=== PATIENT | male | born 1945 | race Caucasian/White ===

== ENCOUNTER 2017-06-09 16:04 | Emergency (ER) | payer OTHER ==
[2017-06-09 16:59] LABS: BASOPHILS 0.3 % (0-2); EOSINOPHILS 4.3 % (0-7); HEMATOCRIT 34.6 % (42.0-54.0); HEMOGLOBIN 11.4 g/dL (13.5-17.5); IMMATURE GRANULOCYTES 0.3 % (0-5); LYMPHOCYTES 35.1 % (15-50); MCH 26.9 pg (26.0-34.0); MCHC 32.9 g/dL (31.0-37.0); MCV 81.6 fL (80.0-100.0); MEAN PLATELET VOLUME 9.8 fL (7.4-10.4); MONOCYTES 6.8 % (2-11); NEUTROPHILS 53.2 % (40-80); PLATELET COUNT 178 10x3/uL (130-400); RBC 4.24 10x6/uL (4.20-6.10); RDW 14.2 % (11.5-14.5); WBC 6.8 10x3/uL (4.8-10.8)
[2017-06-09 17:12] LABS: APTT 25.4 SECONDS (22.8-39.4); INR 0.97 (0.85-1.17); PROTIME 12.5 SECONDS (11.6-15.0)
[2017-06-09 17:20] LABS: APPEARANCE CLEAR (CLEAR); COLOR YELLOW (YELLOW); GLUCOSE 100 mg/dL (NEGATIVE); NITRITE NEGATIVE (NEGATIVE); PROTEIN TRACE mg/dL (NEGATIVE); SPECIFIC GRAVITY 1.015 (1.005-1.020)
[2017-06-09 17:21] LABS: BILIRUBIN NEGATIVE (NEGATIVE); KETONE NEGATIVE (NEGATIVE); UROBILINOGEN NORMAL (NORMAL)
[2017-06-09 17:23] LABS: BILIRUBIN - TOTAL 0.3 mg/dL (0.2-1.3); CALCIUM 8.6 mg/dL (8.5-10.1); CARBON DIOXIDE 29.4 mmol/L (21.0-32.0); CREATININE - SERUM 1.4 mg/dL (0.6-1.3); POTASSIUM - SERUM 4.4 mmol/L (3.5-5.1); PROTEIN - SERUM 6.3 g/dL (6.4-8.2)
[2017-06-09 17:30] LABS: MAGNESIUM - SERUM 1.6 mg/dL (1.8-2.4); TROPONIN-I 0.019 ng/mL (0.000-0.060)
[2017-06-09 17:40] LABS: UDS - AMPHET NEGATIVE QUAL (NEGATIVE); UDS - BARB NEGATIVE QUAL (NEGATIVE); UDS - BENZO NEGATIVE QUAL (NEGATIVE); UDS - COCAINE NEGATIVE QUAL (NEGATIVE); UDS - OPIATE NEGATIVE QUAL (NEGATIVE); UDS - PCP NEGATIVE QUAL (NEGATIVE); UDS - THC NEGATIVE QUAL (NEGATIVE)
[2017-06-09 17:54] LABS: CKMB 1.9 U/L (0.0-3.6)
== END 2017-06-09 20:50 | disposition home or self-care (01) ==
LOC: D.ER 16:04
PROVIDERS: Nurse Practitioner Family
DX: S80.02XA Contusion of left knee, initial encounter (principal); W01.0XXA Fall on same level from slipping, tripping and stumbling without subsequent striking against object, initial encounter; Y93.89 Activity, other specified; Y92.019 Unspecified place in single-family (private) house as the place of occurrence of the external cause; R53.1 Weakness; E11.9 Type 2 diabetes mellitus without complications; Z86.73 Personal history of transient ischemic attack (TIA), and cerebral infarction without residual deficits; I10 Essential (primary) hypertension; Z79.4 Long term (current) use of insulin

== ENCOUNTER 2017-06-20 18:23 | Emergency (ER) | payer OTHER ==
[2017-06-20 20:12] LABS: BASOPHILS 0.4 % (0-2); EOSINOPHILS 1.6 % (0-7); HEMATOCRIT 39.3 % (42.0-54.0); HEMOGLOBIN 13.3 g/dL (13.5-17.5); IMMATURE GRANULOCYTES 0.2 % (0-5); LYMPHOCYTES 32.8 % (15-50); MCH 27.4 pg (26.0-34.0); MCHC 33.8 g/dL (31.0-37.0); MCV 80.9 fL (80.0-100.0); MEAN PLATELET VOLUME 10.2 fL (7.4-10.4); MONOCYTES 5.9 % (2-11); NEUTROPHILS 59.1 % (40-80); RBC 4.86 10x6/uL (4.20-6.10); RDW 13.8 % (11.5-14.5); WBC 9.3 10x3/uL (4.8-10.8)
[2017-06-20 20:27] LABS: ALBUMIN 3.2 g/dL (3.4-5.0); ANION GAP 12.1 mmol/L (8-16); BILIRUBIN - TOTAL 0.32 mg/dL (0.2-1.3); CALCIUM 9.1 mg/dL (8.5-10.1); CARBON DIOXIDE 27.9 mmol/L (21.0-32.0); CREATININE - SERUM 1.2 mg/dL (0.6-1.3); PROTEIN - SERUM 6.9 g/dL (6.4-8.2)
[2017-06-20 20:46] LABS: PLATELET COUNT 243 10x3/uL (130-400)
[2017-06-20 20:53] LABS: APPEARANCE CLEAR (CLEAR); BILIRUBIN NEGATIVE (NEGATIVE); COLOR YELLOW (YELLOW); GLUCOSE 50 mg/dL (NEGATIVE); KETONE NEGATIVE (NEGATIVE); NITRITE NEGATIVE (NEGATIVE); PROTEIN 1+ mg/dL (NEGATIVE); SPECIFIC GRAVITY 1.015 (1.005-1.020); UROBILINOGEN NORMAL (NORMAL)
[2017-06-20 20:54] LABS: BACTERIA FEW /hpf (NONE SEEN); RED CELLS - URINE 0-5 /hpf (0-5); WHITE CELLS - URINE 25-50 /hpf (0-5)
== END 2017-06-20 21:51 | disposition home or self-care (01) ==
LOC: D.ER 18:23
PROVIDERS: Emergency Medicine
DX: N39.0 Urinary tract infection, site not specified (principal); R10.9 Unspecified abdominal pain; Z86.73 Personal history of transient ischemic attack (TIA), and cerebral infarction without residual deficits; E11.9 Type 2 diabetes mellitus without complications; I10 Essential (primary) hypertension

== ENCOUNTER 2017-06-25 19:46 | Inpatient (IN) | payer MEDICARE, OTHER ==
[~2017-06-25] VITALS: Ht 172.7 cm; Wt 107.3 kg
[2017-06-25 20:56] LABS: APPEARANCE HAZY (CLEAR); BILIRUBIN NEGATIVE (NEGATIVE); COLOR DK YELLOW (YELLOW); GLUCOSE NEGATIVE (NEGATIVE); KETONE NEGATIVE (NEGATIVE); NITRITE NEGATIVE (NEGATIVE); PROTEIN 3+ mg/dL (NEGATIVE); UROBILINOGEN NORMAL (NORMAL)
[2017-06-25 21:02] LABS: AMORPHOUS SEDIMENT >1+ /lpf (NONE SEEN); BACTERIA MANY /hpf (NONE SEEN); EPITHELIAL CELLS 0-5 /hpf (0-5); GRANULAR CAST OCC /lpf (NONE SEEN); HYALINE CAST OCC /lpf (NONE SEEN); MUCUS >1+ /lpf (NONE SEEN); RED CELLS - URINE 25-50 /hpf (0-5); WHITE CELLS - URINE >50 /hpf (0-5)
[2017-06-25 21:07] LABS: BASOPHILS 0.3 % (0-2); EOSINOPHILS 3.5 % (0-7); HEMATOCRIT 37.8 % (42.0-54.0); HEMOGLOBIN 12.5 g/dL (13.5-17.5); IMMATURE GRANULOCYTES 0.2 % (0-5); LYMPHOCYTES 19.8 % (15-50); MCH 27.2 pg (26.0-34.0); MCHC 33.1 g/dL (31.0-37.0); MCV 82.4 fL (80.0-100.0); MEAN PLATELET VOLUME 10.5 fL (7.4-10.4); MONOCYTES 12.3 % (2-11); NEUTROPHILS 63.9 % (40-80); PLATELET COUNT 169 10x3/uL (130-400); RBC 4.59 10x6/uL (4.20-6.10); UDS - AMPHET NEGATIVE QUAL (NEGATIVE); UDS - BARB NEGATIVE QUAL (NEGATIVE); UDS - BENZO NEGATIVE QUAL (NEGATIVE); UDS - COCAINE NEGATIVE QUAL (NEGATIVE); UDS - OPIATE NEGATIVE QUAL (NEGATIVE); UDS - PCP NEGATIVE QUAL (NEGATIVE); UDS - THC NEGATIVE QUAL (NEGATIVE)
[2017-06-25 21:11] LABS: APTT 26.7 SECONDS (22.8-39.4); INR 1.08 (0.85-1.17); PROTIME 13.6 SECONDS (11.6-15.0)
[2017-06-25 21:18] LABS: ALBUMIN 2.8 g/dL (3.4-5.0); ALKALINE PHOSPHATASE 93 U/L (46-116); ALT (SGPT) 17 U/L (10-68); BILIRUBIN - TOTAL 0.23 mg/dL (0.2-1.3); CALC OSMOLALITY 280 mosm/kg (275-300); CALCIUM 8.4 mg/dL (8.5-10.1); CARBON DIOXIDE 24.9 mmol/L (21.0-32.0); CHLORIDE - SERUM 102 mmol/L (98-107); CREATININE - SERUM 1.6 mg/dL (0.6-1.3); POTASSIUM - SERUM 4.2 mmol/L (3.5-5.1); PROTEIN - SERUM 6.5 g/dL (6.4-8.2); SODIUM 137 mmol/L (136-145); UREA NITROGEN 29 mg/dL (7-18); eGFR NON AFRICAN AMERICAN 45 mL/min (90-120)
[2017-06-25 21:22] LABS: GLUCOSE 120 mg/dL (74-106)
[2017-06-25 21:27] LABS: CREATINE KINASE 81 UL (21-232); MAGNESIUM - SERUM 1.5 mg/dL (1.8-2.4); PRO BNP 524 pg/mL (0-125)
[2017-06-25 21:29] LABS: TROPONIN-I < 0.017 ng/mL (0.000-0.060)
[2017-06-26] MEDS ORDERED: GLUCOPHAGE1000 MG PO (01:21)
[2017-06-26] MEDS ORDERED: PRESERVISION AR1 CAP PO (01:22)
[2017-06-26] MEDS ORDERED: B-12 DOTS500 MCG PO (01:22)
[2017-06-26] MEDS ORDERED: FUROSEMIDE20 MG PO (01:23)
[2017-06-26] MEDS ORDERED: EFFEXOR75 MG PO (01:23)
[2017-06-26] MEDS ORDERED: METOPROLOL TART50 MG PO (01:24)
[2017-06-26] MEDS ORDERED: CLINORIL150 MG PO (01:24)
[2017-06-26] MEDS ORDERED: PRINIVIL20 MG PO (01:25)
[2017-06-26] MEDS ORDERED: BUPROPION HCL100 MG PO (01:25)
[2017-06-26] MEDS ORDERED: PROSCAR5 MG PO (01:25)
[2017-06-26] MEDS ORDERED: K-TAB10 MEQ PO (01:26)
[2017-06-26] MEDS ORDERED: LIPITOR40 MG PO (01:26)
[2017-06-26] MEDS ORDERED: ACETAMINOPHEN500 M1 PO (01:27)
[2017-06-26] MEDS ORDERED: VITAMIN D31000 UNIT PO (01:28)
[2017-06-26] MEDS ORDERED: ISOSORBIDE MONO30 M1 PO (01:28)
[2017-06-26] MEDS ORDERED: FLOMAX0.4 MG PO (01:29)
[2017-06-26] MEDS ORDERED: BAYER CHEWABLE81 MG PO (01:30)
[2017-06-26] MEDS ORDERED: REFRESH TEARS15 ML EACH EYE (01:30)
[2017-06-26 02:42] VITALS: BP 177/74; BMI 37.7
[2017-06-26 05:06] LABS: BASOPHILS 0.1 % (0-2); EOSINOPHILS 0.5 % (0-7); HEMATOCRIT 36.2 % (42.0-54.0); IMMATURE GRANULOCYTES 0.2 % (0-5); LYMPHOCYTES 12.5 % (15-50); MCH 26.9 pg (26.0-34.0); MCHC 33.1 g/dL (31.0-37.0); MCV 81.2 fL (80.0-100.0); MEAN PLATELET VOLUME 10.4 fL (7.4-10.4); MONOCYTES 10.4 % (2-11); NEUTROPHILS 76.3 % (40-80); PLATELET COUNT 170 10x3/uL (130-400); RBC 4.46 10x6/uL (4.20-6.10); WBC 8.5 10x3/uL (4.8-10.8)
[2017-06-26 05:20] LABS: ANION GAP 13.3 mmol/L (8-16); CALCIUM 8.3 mg/dL (8.5-10.1); CARBON DIOXIDE 25.7 mmol/L (21.0-32.0); CREATININE - SERUM 1.4 mg/dL (0.6-1.3); MAGNESIUM - SERUM 1.8 mg/dL (1.8-2.4)
[2017-06-26 08:32] VITALS: BP 139/49
[2017-06-26 11:46] VITALS: BP 168/75
[2017-06-26 14:56] VITALS: Ht 172.7 cm; Wt 107.3 kg
[2017-06-26 15:26] VITALS: BP 168/75
[2017-06-26 20:43] VITALS: BP 90/70
[2017-06-27] VITALS (7 sets, daily range): BP systolic 95–165; BP diastolic 61–87
[2017-06-27 06:27] LABS: ANION GAP 12.3 mmol/L (8-16); CALCIUM 8.1 mg/dL (8.5-10.1); CARBON DIOXIDE 25.7 mmol/L (21.0-32.0); CREATININE - SERUM 1.4 mg/dL (0.6-1.3)
[2017-06-27 07:04] LABS: HEMATOCRIT 36.9 % (42.0-54.0); HEMOGLOBIN 12.2 g/dL (13.5-17.5); LYMPHOCYTES 26.4 % (15-50); MCH 26.8 pg (26.0-34.0); MCHC 33.1 g/dL (31.0-37.0); MCV 80.9 fL (80.0-100.0); MEAN PLATELET VOLUME 10.5 fL (7.4-10.4); NEUTROPHILS 62.2 % (40-80); PLATELET COUNT 166 10x3/uL (130-400); RBC 4.56 10x6/uL (4.20-6.10); RDW 13.6 % (11.5-14.5); WBC 7.3 10x3/uL (4.8-10.8)
[2017-06-28 04:00] VITALS: BP 165/72
[2017-06-28 06:03] LABS: BASOPHILS 0.2 % (0-2); EOSINOPHILS 0.8 % (0-7); HEMOGLOBIN 11.5 g/dL (13.5-17.5); IMMATURE GRANULOCYTES 0.2 % (0-5); LYMPHOCYTES 26.5 % (15-50); MCH 26.7 pg (26.0-34.0); MCHC 32.9 g/dL (31.0-37.0); MCV 81.4 fL (80.0-100.0); MEAN PLATELET VOLUME 10.6 fL (7.4-10.4); MONOCYTES 9.4 % (2-11); NEUTROPHILS 62.9 % (40-80); PLATELET COUNT 190 10x3/uL (130-400); RDW 14.1 % (11.5-14.5); WBC 6.6 10x3/uL (4.8-10.8)
[2017-06-28 06:36] LABS: ANION GAP 15.3 mmol/L (8-16); CALCIUM 8.2 mg/dL (8.5-10.1); CARBON DIOXIDE 23.2 mmol/L (21.0-32.0); CREATININE - SERUM 1.3 mg/dL (0.6-1.3); POTASSIUM - SERUM 3.5 mmol/L (3.5-5.1)
[2017-06-28 09:10] VITALS: BP 193/91
[2017-06-28 12:16] VITALS: BP 120/68
[2017-06-28 16:45] VITALS: BP 175/79
[2017-06-28 20:00] VITALS: BP 141/87
[2017-06-29 04:31] LABS: BASOPHILS 0.3 % (0-2); EOSINOPHILS 0.8 % (0-7); HEMATOCRIT 38.2 % (42.0-54.0); HEMOGLOBIN 12.6 g/dL (13.5-17.5); IMMATURE GRANULOCYTES 0.2 % (0-5); MCH 26.9 pg (26.0-34.0); MCV 81.6 fL (80.0-100.0); MEAN PLATELET VOLUME 10.1 fL (7.4-10.4); MONOCYTES 8.4 % (2-11); NEUTROPHILS 57.3 % (40-80); PLATELET COUNT 221 10x3/uL (130-400); RBC 4.68 10x6/uL (4.20-6.10); WBC 5.9 10x3/uL (4.8-10.8)
[2017-06-29 04:44] LABS: CALCIUM 8.8 mg/dL (8.5-10.1); CREATININE - SERUM 1.1 mg/dL (0.6-1.3)
[2017-06-29 06:12] VITALS: BP 194/102
[2017-06-29 08:38] VITALS: BP 160/95
[2017-06-29 12:30] VITALS: BP 146/90
[2017-06-29 20:00] VITALS: BP 138/84
[2017-06-30 04:00] VITALS: BP 184/84
[2017-06-30 04:09] LABS: BASOPHILS 0.4 % (0-2); EOSINOPHILS 1.3 % (0-7); HEMATOCRIT 37.6 % (42.0-54.0); HEMOGLOBIN 12.4 g/dL (13.5-17.5); IMMATURE GRANULOCYTES 0.2 % (0-5); LYMPHOCYTES 40.3 % (15-50); MCH 26.7 pg (26.0-34.0); MCV 80.9 fL (80.0-100.0); NEUTROPHILS 46.8 % (40-80); PLATELET COUNT 250 10x3/uL (130-400); RBC 4.65 10x6/uL (4.20-6.10); RDW 13.9 % (11.5-14.5); WBC 5.4 10x3/uL (4.8-10.8)
[2017-06-30 04:23] LABS: ANION GAP 11.9 mmol/L (8-16); CALCIUM 8.5 mg/dL (8.5-10.1); CREATININE - SERUM 1.2 mg/dL (0.6-1.3); POTASSIUM - SERUM 3.9 mmol/L (3.5-5.1)
[2017-06-30 08:48] VITALS: BP 153/97
[2017-06-30] MEDS ORDERED: LEVAQUIN500 MG PO (10:31)
[2017-06-30 11:46] VITALS: BP 128/65
[2017-07-01 18:07] LABS: AEROBE ID Final report (()); RESULT 1 Serratia odorifera (())
== END 2017-06-30 18:02 | disposition home or self-care (01) | DRG 872 ==
LOC: D.ER 19:46 → D.M2 06-26 00:36 → OBSVTIME 06-26 00:36 → D.M2 06-26 11:40
PROVIDERS: Emergency Medicine; Family Medicine; Nurse Practitioner Family
DX: A41.9 Sepsis, unspecified organism (principal); N39.0 Urinary tract infection, site not specified; R78.81 Bacteremia; J11.1 Influenza due to unidentified influenza virus with other respiratory manifestations; H35.30 Unspecified macular degeneration; H54.8 Legal blindness, as defined in USA; I10 Essential (primary) hypertension; I25.10 Atherosclerotic heart disease of native coronary artery without angina pectoris; E11.40 Type 2 diabetes mellitus with diabetic neuropathy, unspecified

== ENCOUNTER 2017-09-02 21:13 | Emergency (ER) | payer OTHER ==
[2017-06-26 14:56] VITALS: BMI 37.7
[~2017-09-02 21:13] MED LIST: ACETAMINOPHEN500 M1 PO; B-12 DOTS500 MCG PO; BAYER CHEWABLE81 MG PO; BUPROPION HCL100 MG PO; CLINORIL150 MG PO; EFFEXOR75 MG PO; FLOMAX0.4 MG PO; FUROSEMIDE20 MG PO; GLUCOPHAGE1000 MG PO; ISOSORBIDE MONO30 M1 PO; K-TAB10 MEQ PO; LEVAQUIN500 MG PO; LIPITOR40 MG PO; METOPROLOL TART50 MG PO; PRESERVISION AR1 CAP PO; PRINIVIL20 MG PO; PROSCAR5 MG PO; REFRESH TEARS15 ML EACH EYE; VITAMIN D31000 UNIT PO
[2017-09-02 21:58] LABS: BASOPHILS 0.4 % (0-2); HEMATOCRIT 36.4 % (42.0-54.0); IMMATURE GRANULOCYTES 0.2 % (0-5); LYMPHOCYTES 35.2 % (15-50); MCH 26.8 pg (26.0-34.0); MCV 81.4 fL (80.0-100.0); MEAN PLATELET VOLUME 10.7 fL (7.4-10.4); MONOCYTES 6.7 % (2-11); NEUTROPHILS 54.5 % (40-80); PLATELET COUNT 200 10x3/uL (130-400); RBC 4.47 10x6/uL (4.20-6.10); RDW 13.6 % (11.5-14.5); WBC 8.5 10x3/uL (4.8-10.8)
[2017-09-02 22:20] LABS: ALBUMIN 2.7 g/dL (3.4-5.0); ANION GAP 14.4 mmol/L (8-16); BILIRUBIN - TOTAL 0.23 mg/dL (0.2-1.3); CALCIUM 8.7 mg/dL (8.5-10.1); CARBON DIOXIDE 24.9 mmol/L (21.0-32.0); CREATININE - SERUM 1.4 mg/dL (0.6-1.3); POTASSIUM - SERUM 4.3 mmol/L (3.5-5.1); PROTEIN - SERUM 6.6 g/dL (6.4-8.2)
[2017-09-02 22:25] LABS: APPEARANCE CLEAR (CLEAR); BILIRUBIN NEGATIVE (NEGATIVE); COLOR YELLOW (YELLOW); GLUCOSE 1000 mg/dL (NEGATIVE); KETONE NEGATIVE (NEGATIVE); NITRITE NEGATIVE (NEGATIVE); PROTEIN TRACE mg/dL (NEGATIVE); UROBILINOGEN NORMAL (NORMAL)
[2017-09-02 22:27] LABS: BACTERIA FEW /hpf (NONE SEEN); RED CELLS - URINE 0-5 /hpf (0-5); WHITE CELLS - URINE 0-5 /hpf (0-5)
[2017-09-02 22:29] LABS: YEAST OCC /hpf (NONE SEEN)
[2017-09-02 22:49] LABS: KETONE - SERUM NEGATIVE (NEGATIVE)
[2017-09-02 22:53] LABS: CREATINE KINASE 67 UL (21-232); LIPASE 105 U/L (73-393); TROPONIN-I < 0.017 ng/mL (0.000-0.060)
== END 2017-09-03 00:04 | disposition home or self-care (01) ==
LOC: D.ER 21:13
PROVIDERS: Family Medicine
DX: R60.0 Localized edema (principal); E11.65 Type 2 diabetes mellitus with hyperglycemia; G62.9 Polyneuropathy, unspecified; N28.9 Disorder of kidney and ureter, unspecified

== ENCOUNTER 2018-01-19 21:32 | Emergency (ER) | payer OTHER ==
[~2018-01-19] VITALS: Ht 172.7 cm; Wt 120.5 kg
[2018-01-19 21:51] VITALS: Ht 172.7 cm; Wt 120.5 kg
[2018-01-19 22:23] LABS: BASOPHILS 0.2 % (0-2); EOSINOPHILS 3.4 % (0-7); HEMATOCRIT 35.4 % (42.0-54.0); HEMOGLOBIN 11.7 g/dL (13.5-17.5); IMMATURE GRANULOCYTES 0.2 % (0-5); LYMPHOCYTES 32.3 % (15-50); MCH 27.5 pg (26.0-34.0); MCHC 33.1 g/dL (31.0-37.0); MCV 83.1 fL (80.0-100.0); MEAN PLATELET VOLUME 10.5 fL (7.4-10.4); MONOCYTES 9.5 % (2-11); NEUTROPHILS 54.4 % (40-80); RBC 4.26 10x6/uL (4.20-6.10); RDW 14.4 % (11.5-14.5); WBC 6.4 10x3/uL (4.8-10.8)
[2018-01-19 22:38] LABS: KETONE - SERUM NEGATIVE (NEGATIVE)
[2018-01-19 22:43] LABS: PLATELET COUNT 158 10x3/uL (130-400)
[2018-01-19 22:46] LABS: ALBUMIN 2.8 g/dL (3.4-5.0); ALKALINE PHOSPHATASE 96 U/L (46-116); ALT (SGPT) 18 U/L (10-68); BILIRUBIN - TOTAL 0.19 mg/dL (0.2-1.3); CALC OSMOLALITY 294 mosm/kg (275-300); CALCIUM 8.5 mg/dL (8.5-10.1); CARBON DIOXIDE 28.9 mmol/L (21.0-32.0); CHLORIDE - SERUM 104 mmol/L (98-107); CREATININE - SERUM 1.6 mg/dL (0.6-1.3); POTASSIUM - SERUM 4.8 mmol/L (3.5-5.1); PROTEIN - SERUM 6.3 g/dL (6.4-8.2); SODIUM 139 mmol/L (136-145); UREA NITROGEN 22 mg/dL (7-18); eGFR NON AFRICAN AMERICAN 45 mL/min (90-120)
[2018-01-19 22:47] LABS: GLUCOSE 359 mg/dL (74-106)
[2018-01-19 22:53] LABS: APPEARANCE CLEAR (CLEAR); BILIRUBIN NEGATIVE (NEGATIVE); COLOR YELLOW (YELLOW); GLUCOSE 1000 mg/dL (NEGATIVE); KETONE SMALL mg/dL (NEGATIVE); NITRITE NEGATIVE (NEGATIVE); PROTEIN 1+ mg/dL (NEGATIVE); UROBILINOGEN NORMAL (NORMAL)
[2018-01-19 23:52] LABS: CKMB 1.9 U/L (0.0-3.6); CREATINE KINASE 105 UL (21-232)
[2018-01-19 23:53] LABS: TROPONIN-I < 0.017 ng/mL (0.000-0.060)
[2018-01-20 02:27] VITALS: BP 135/70
== END 2018-01-20 01:25 | disposition home or self-care (01) ==
LOC: D.ER 21:32
PROVIDERS: Emergency Medicine
DX: E11.65 Type 2 diabetes mellitus with hyperglycemia (principal); M79.605 Pain in left leg; M79.604 Pain in right leg; G62.9 Polyneuropathy, unspecified; H91.3 Deaf nonspeaking, not elsewhere classified; I10 Essential (primary) hypertension; N42.9 Disorder of prostate, unspecified

== ENCOUNTER 2018-01-22 10:54 | Emergency (ER) | payer OTHER ==
[~2018-01-22] VITALS: Ht 172.7 cm; Wt 100.0 kg
[2018-01-22 11:05] VITALS: Ht 172.7 cm; Wt 100.0 kg
[2018-01-22 11:28] LABS: BASOPHILS 0.3 % (0-2); EOSINOPHILS 2.6 % (0-7); HEMATOCRIT 35.4 % (42.0-54.0); HEMOGLOBIN 11.6 g/dL (13.5-17.5); IMMATURE GRANULOCYTES 0.2 % (0-5); LYMPHOCYTES 27.4 % (15-50); MCH 27.2 pg (26.0-34.0); MCHC 32.8 g/dL (31.0-37.0); MCV 83.1 fL (80.0-100.0); MEAN PLATELET VOLUME 10.5 fL (7.4-10.4); MONOCYTES 8.9 % (2-11); NEUTROPHILS 60.6 % (40-80); PLATELET COUNT 175 10x3/uL (130-400); RBC 4.26 10x6/uL (4.20-6.10); RDW 14.4 % (11.5-14.5); WBC 6.1 10x3/uL (4.8-10.8)
[2018-01-22 11:36] LABS: APPEARANCE CLEAR (CLEAR); COLOR YELLOW (YELLOW); SPECIFIC GRAVITY 1.015 (1.005-1.020)
[2018-01-22 11:37] LABS: BILIRUBIN NEGATIVE (NEGATIVE); GLUCOSE NEGATIVE (NEGATIVE); KETONE NEGATIVE (NEGATIVE); NITRITE NEGATIVE (NEGATIVE); PROTEIN TRACE mg/dL (NEGATIVE); UROBILINOGEN NORMAL (NORMAL)
[2018-01-22 11:51] LABS: ALBUMIN 2.7 g/dL (3.4-5.0); ANION GAP 12.4 mmol/L (8-16); BILIRUBIN - TOTAL 0.27 mg/dL (0.2-1.3); CALCIUM 8.4 mg/dL (8.5-10.1); CARBON DIOXIDE 26.5 mmol/L (21.0-32.0); CREATININE - SERUM 1.3 mg/dL (0.6-1.3); POTASSIUM - SERUM 3.9 mmol/L (3.5-5.1); PROTEIN - SERUM 6.3 g/dL (6.4-8.2)
[2018-01-22 15:59] VITALS: BP 136/88
== END 2018-01-22 16:03 | disposition home or self-care (01) ==
LOC: D.ER 10:54
PROVIDERS: Family Medicine
DX: M54.41 Lumbago with sciatica, right side (principal); E11.649 Type 2 diabetes mellitus with hypoglycemia without coma; R53.1 Weakness; H91.3 Deaf nonspeaking, not elsewhere classified; I10 Essential (primary) hypertension; N42.9 Disorder of prostate, unspecified

== ENCOUNTER 2019-08-14 11:04 | Observation (INO) | payer OTHER ==
[~2019-08-14] VITALS: Ht 172.7 cm; Wt 120.2 kg
--- NOTE | ~2019-08-14 | HEMODYNAMI ---
PATIENT:COLBY PARHAM MEDICAL RECORD: [id number] : 41 [facility] [id number] ADMISSION DATE: 08/14/19 Generatedon:08/15/201911:35 Patient name: COLBY PARHAM Patient #: [id number] SSN: [id number] : 1945 Date of study: 08/15/2019 Page: Of Hemodynamic Procedure Report Patient Data Patient Demographics Procedure consent was obtained First Name: COLBY Gender: Male Last Name: PRASAD : 1945 Middle Initial: N Age: 73 year(s) Patient #: [id number] Race: SSN: [id number] Additional ID: [id number] Contact details [address]: [address] [place] [address] State: [place] City: [place] Zip code: [address] Past Medical History Allergies Allergen Reaction Date Comments Reported Other allergy 08/15/2019 N Admission Admission Data Admission Date: 08/14/2019 Admission Time: 12:31 Arrival Date: 08/15/2019 Arrival Time: 0:00 Admit Source: Other [facility] #: [id number] Room #: D.2116 Height (in.): 68.11 BSA: 2.32 (m2) Height (cm.): 173 BMI: 40.76 (kg/m2) Weight (lbs.): 268.97 Weight (kg.): 122 Lab Results Lab Result Date: 08/15/2019 Lab Result Time: 0:00 Biochemistry Name Units Result Min Max BUN mg/dl 22 --(----)-* 7 18 CK-MB ng/ml 1 --(-*--)-- 0 3.6 Creatinine mg/dl 1.7 --(----)-* 0.6 1.3 eGFR ml/min 42 *-(----)-- 90 120 NONAFRICAN Troponin l ng/ml 0.069 --(----)*- 0 0.06 CBC Name Units Result Min Max Hematocrit % 36.8 *-(----)-- 42 54 Hemoglobin g/dl 12 *-(----)-- 13.5 17.5 Procedure Procedure Types Cath Procedure Diagnostic Procedure [facility] w/Coronaries w/Grafts Sedation Charges Moderate Sedation up to 45 minutes PCI Procedure Coronary Stent Coronary Stent Initial Hemochron ACT Test Procedure Description Procedure Date Procedure Date: 08/15/2019 Procedure Start Time: 10:58 Procedure Staff Name Function Sang Berg MD Performing Physician Edie Hale RT Monitor Salina Adams RT Scrub Cristiano Miller RN Nurse Procedure Data Cath Procedure Fluoroscopy Diagnostic fluoroscopy Total fluoroscopy Time: 9.1 time: 9.1 min min Diagnostic fluoroscopy Total fluoroscopy dose: dose: 1677 mGy 1677 mGy Contrast Material Contrast Material Type Amount (ml) Isovue 370 133 Entry Location Entry Primary Successful Side Size Upsize Upsize Entry Closure Succes sful Closure Location (Fr) 1 (Fr) 2 (Fr) Remarks Device Remarks Femoral Right 5 Fr 6 Fr Exoseal artery Short Estimated blood loss: 10 ml Diagnostic catheters Device Type Used For End Catheter Placement MULTIPACK JL 4.0 5Fr Procedure catheter DIAGNOSTIC AR MOD 5Fr Procedure Catheter ([id number]) DIAGNOSTIC IM 5Fr Procedure catheter ([id number]) MULTIPACK Pigtail 5 Fr Procedure catheter Procedure Complications No complications Procedure Medications Medication Administration Route Dosage Oxygen etCO2 Nasal cannula 2 l/min Lidocaine 2% added to field 20 Heparin Flush Bag added to field 2 bags (1000units/500ml NS) Versed I.V. 1 mg Fentanyl I.V. 50 mcg Versed I.V. 1 mg Fentanyl I.V. 50 mcg Versed I.V. 1 mg Versed I.V. 1 mg Heparin Bolus I.V. 91287 units Fentanyl I.V. 100 mcg Plavix P.O. 600 mg Hemodynamics Rest BSA: 2.32 (m2) HGB: 12 (g/dl) O2 Consumption: Estimated: 263.22 (ml/min) O2 Cons umption indexed: Estimated:113.46 (ml/min/m) Heart Rate: 66 (bpm) Snapshots Pre Cath Intra NCS Post Cath Vital Signs Time Heart Resp SPO2 etCO2 NIBP (mmHg) Rhythm Pain Sedation Rate (ipm) (%) (mmHg) Status Level (bpm) 10:35:12 65 19 99 34.4 159/79(121) NSR 0 (11) 10(A) , No pain 10:39:45 65 17 97 0 154/86(124) NSR 0 (11) 10(A) , No pain 10:44:15 67 16 96 33.7 148/87(124) NSR 0 (11) 10(A) , No pain 10:48:45 66 17 97 0 153/80(129) NSR 0 (11) 10(A) , No pain 10:53:18 67 16 97 16.4 138/71(119) NSR 0 (11) 9(A) , No pain 10:57:42 67 19 98 0 142/82(111) NSR 0 (11) 9(A) , No pain 11:02:08 66 14 98 0 149/84(116) NSR 0 (11) 9(A) , No pain 11:06:38 69 18 95 0 145/84(115) NSR 0 (11) 9(A) , No pain 11:11:11 68 18 98 0 152/73(115) NSR 0 (11) 9(A) , No pain 11:15:43 67 17 99 0 148/76(111) NSR 0 (11) 10(A) , No pain 11:20:14 68 17 98 0 153/81(123) NSR 0 (11) 10(A) , No pain 11:24:46 68 11 94 17.2 142/79(109) NSR 0 (11) 10(A) , No pain 11:29:12 70 12 94 0 159/82(134) NSR 0 (11) 10(A) , No pain 11:33:45 72 15 97 31.4 166/84(132) NSR 0 (11) 10(A) , No pain Medications Time Medication Route Dose Verified Delivered Reason Note s Effectiveness by by 10:36:33 Oxygen etCO2 2 Sang Buffie used for Nasal l/min Otis Miller RN procedure cannula 10:36:41 Lidocaine 2% added 20ml Sang Sang for local to vial Otis Berg MD anesthetic field 10:36:47 Heparin Flush added 2 bags Sang Sang used for Bag to Otis Berg MD procedure (1000units/500ml field NS) 10:46:14 Versed I.V. 1 mg Sang Buffie for sedation Otis Miller RN 10:46:20 Fentanyl I.V. 50 mcg Sang Buffie for sedation Otis Miller RN 10:50:19 Versed I.V. 1 mg Sang Buffie for sedation Otis Miller RN 10:50:23 Fentanyl I.V. 50 mcg Sang Buffie for sedation Otis Miller RN 11:00:58 Versed I.V. 1 mg Sang Buffie for sedation Otis Miller RN 11:07:00 Versed I.V. 1 mg Sang Buffie for sedation Otis Miller RN 11:18:24 Heparin Bolus I.V. 11,000 Sang Buffie for veri fied units Otis Miller RN anticoagulation with dr berg 11:21:23 Fentanyl I.V. 100 Sang Buffie for sedation mcg Otis Miller RN 11:28:43 Plavix P.O. 600 mg Sang Buffie for Otis Miller RN antiplatelet therapy Procedure Log Time Note 9:48:41 Informed consent obtained and on chart 9:49:42 Arrival Date: 08/15/2019 12:00:00 AM 9:50:06 Patient Height : 68.11 inches 9:50:13 Patient Weight : 268.97 lbs 9:56:02 Lab Result : BUN 22 mg/dl 9:56:02 Lab Result : eGFR NONAFRICAN 42 ml/min 9:56:02 Lab Result : Hemoglobin 12 g/dl 9:56:02 Lab Result : Hematocrit 36.8 % 9:56:02 Lab Result : Creatinine 1.7 mg/dl 9:56:02 Lab Result : CK-MB 1 ng/ml 9:56:02 Lab Result : Troponin l 0.069 ng/ml 9:56:16 Admit Source: Other 9:56:22 Procedure Status Urgent Heart Cath (IP). 9:57:12 Time tracking: Regular hours (M-F 7:00 - 5:00) 9:57:21 Plan of Care:Hemodynamics will remain stable., Cardiac rhythm will remain stable., Comfort level will be maintained., Respiratory function will remain adequate., Patient/ family verbilizes understanding of procedure., Procedure tolerated without complication., Recovers from procedure without complications.. 9:58:05 H&P Date Dictated: 08/14/2019 Within 30 days and on chart.. 9:58:06 Pre-procedure instructions explained to patient. 9:58:07 Pre-op teaching completed and patient verbalized understanding. 9:58:08 Family unavailable. 9:58:10 Patient NPO since Midnight. 9:58:29 Patient allergic to Other allergyPCN 9:58:37 Lab results completed and on chart. 9:59:19 Stress Test: no; N/A ? 9:59:27 Alarms reviewed by R. N. 9:59:28 Sharps counted by scrub and verified by R.N. 10:05:39 Cristiano Miller RN sent for patient. Start room use. 10:19:16 Patient received from Med II to CCL 1 Alert and oriented. Tansferred to table in Supine position. 10:19:17 Warm blankets applied, and saleem hugger turned on for patient comfort. 10:19:18 Correct patient and procedure confirmed by team. 10:19:19 ECG and BP/O2 sat monitors applied to patient. 10:32:01 Is the patient allergic to Iodine/contrast media? No. 10:32:04 Was the patient premedicated? Yes 10:32:11 Is patient on blood thinner?No 10:32:15 Patient diabetic? Yes. 10:32:19 If diabetic: On Metformin? N/A 10:32:21 ----Pre-sedation anethsthesia assessment.---- 10:32:23 Previous problem with sedation/anesthesia? No ? 10:32:25 Snore? Yes 10:32:26 Sleep apnea? No 10:32:27 Deviated septum? No 10:33:03 Opens mouth fully? Yes 10:33:05 Sticks out tongue? Yes 10:33:08 Airway obstruction? No ? 10:33:11 Dentures? Yes IN TIGHT 10:33:16 Pre procedure: right dorsailis pedis pulse 1+ Palpable, but thready & weak; easily obliterated 10:33:19 Patient pain scale 0/10 ?. 10:33:30 IV patent on arrival in left antecubital with 0.9% NaCl at O. 10:33:38 Right groin area was prepped with chlora-prep and draped in sterile fashion 10:33:42 Vital chart was started 10:33:43 Full Disclosure recording started 10:33:46 Baseline sample Acquired. 10:33:52 Rhythm: sinus rhythm 10:34:01 Use device set Femoral Dx 10:34:03 ACIST Syringe (15069) opened to sterile field. 10:34:03 Bag Decanter (2002S) opened to sterile field. 10:34:04 Medline Cath Pack ([id number]) opened to sterile field. 10:34:05 ACIST Hand Control (89818) opened to sterile field. 10:34:05 ACIST Manifold (80972) opened to sterile field. 10:34:06 DIAGNOSTIC Multipack 5Fr catheter set ([id number]) opened to sterile field. 10:34:09 SHEATH 5FR Harrells (BWL890) opened to sterile field. 10:34:10 EMERALD Guide Wire (615-335) opened to sterile field. 10:36:33 Oxygen 2 l/min etCO2 Nasal cannula was administered by Cristiano Miller RN; used for procedure; Verbal order read back and verified. 10:36:41 Lidocaine 2% 20ml vial added to field was administered by Sang Berg MD; for local anesthetic; Verbal order read back and verified. 10:36:47 Heparin Flush Bag (1000units/500ml NS) 2 bags added to field was administered by Sang Begr MD; used for procedure; Verbal order read back and verified. 10:44:52 --------ALL STOP TIME OUT------ 10:44:53 Final Timeout: patient, procedure, and site verified with staff and physician. All members of the team are in agreement. 10:44:54 Right groin site verified by team. 10:44:58 Fire Safety Assessment: A--An alcohol-based skin anteseptic being used preoperatively., C--Open oxygen or nitrous oxide is being used., D--An ESU, laser, or fiber-optic light is being used. 10:45:00 Physical assessment completed. ASA score P 2 - A patient with mild systemic disease as per Sang Berg MD. 10:45:05 3b) 30-44 Moderately reduced kidney function. 10:45:09 Maximum allowable contrast dose (3.7 X eGFR X 0.75)117 ml. 10:45:13 Sedation plan: IV Moderate Sedation Medication:Versed, Fentanyl 10:46:14 Versed 1 mg I.V. was administered by Cristiano Miller RN; for sedation; Verbal order read back and verified. 10:46:20 Fentanyl 50 mcg I.V. was administered by Cristiano Miller RN; for sedation; Verbal order read back and verified. 10:50:19 Versed 1 mg I.V. was administered by Cristiano Miller RN; for sedation; Verbal order read back and verified. 10:50:23 Fentanyl 50 mcg I.V. was administered by Cristiano Miller RN; for sedation; Verbal order read back and verified. 10:58:32 Procedure started. 10:58:53 Local anesthetic to right femoral artery with Lidocaine 2% by Sang Berg MD.INITIAL ACCESS ONLY 11:00:30 A 5 Fr sheath was inserted into the Right Femoral artery 11:00:57 A MULTIPACK JL 4.0 5Fr catheter was advanced over the wire and used for Procedure. 11:00:58 Versed 1 mg I.V. was administered by Cristiano Miller RN; for sedation; Verbal order read back and verified. 11:01:32 LCA angiography performed. 11:01:35 Injector settings: Ml/sec: 3, Volume: 6, 11:02:54 Catheter exchanged over wire. 11:03:30 A DIAGNOSTIC AR MOD 5Fr Catheter ([id number]) was advanced over the wire and used for Procedure. 11:03:51 Injector settings: Ml/sec: 3, Volume: 6, 11:05:20 SVG to Diag angiography performed. 11:07:00 Versed 1 mg I.V. was administered by Cristiano Miller RN; for sedation; Verbal order read back and verified. 11:07:12 RCA angiography performed. 11:07:21 Catheter exchanged over wire. 11:07:24 A DIAGNOSTIC IM 5Fr catheter ([id number]) was advanced over the wire and used for Procedure. 11:10:40 MORRIS to LAD angiography performed. 11:10:57 Injector settings: Ml/sec: 3, Volume: 6, 11:11:00 Catheter exchanged over wire. 11:11:10 A MULTIPACK Pigtail 5 Fr catheter was advanced over the wire and used for Procedure. 11:11:31 Use device set OTIS PCI 11:13:28 Injector settings: Ml/sec: 10, Volume: 20, 11:13:30 Aortic Root visualized 11:13:51 Catheter exchanged over wire. 11:13:52 Proceeding to intervention. 11:14:03 INFLATOR Merit Teek (TL7260) opened to sterile field. 11:14:04 TUBING High Pressure Extension Tubing (Otis) (PE5927G) opened to sterile field. 11:14:05 BMW 300cm [place] 2 J wire ([id number]) opened to sterile field. 11:14:09 SHEATH 6FR Harrells (LBW402) opened to sterile field. 11:15:07 Sheath upsized to a 6 Fr Short. 11:18:24 Heparin Bolus 11,000 units I.V. was administered by Cristiano Miller RN; for anticoagulation; verified with dr berg Verbal order read back and verified. 11:18:50 GUIDE 6FR EBU 3.75 catheter ([id number]) opened to sterile field. 11:18:51 Pre PCI Site: [place] has 80% stenosis. 11:18:58 6 Fr EBU 3.75 guide catheter was inserted over the wire 11:19:02 BMW 300 wire advanced. 11:20:27 Wire advanced across lesion. 11:21:23 Fentanyl 100 mcg I.V. was administered by Cristiano Miller RN; for sedation; Verbal order read back and verified. 11:23:59 Place stent Inflation Number: 1 A ANT RX 3.0 x 15 stent ([id number]) was prepped and advanced across the Prox CX 80. The stent was deployed at 14 RAMÓN for 0:20 (min:sec) . 11:24:32 Stent catheter was removed intact over wire. 11:24:33 Wire removed. 11:24:33 Guide catheter removed. 11:25:17 EXOSEAL 6Fr (EX600) opened to sterile field. 11:25:29 Sheath removed intact; hemostasis achieved with Exoseal to the Right Femoral artery. 11::47 Fluoroscopy time 09.10 minutes. 11:25:54 Fluoroscopy dose: 1677 mGy 11:25:54 Flurop Dose total: 1677 11:26:01 Dose Area Product 64634 mGy/cm. 11:26:06 Contrast amount:Isovue 370 133ml. 11:27:00 Maximum allowable dose exceeded? No. 11:27:01 Sharps counted by scrub and verified by R.N. 11:27:06 Post-op/insertion site Right Femoral artery dressed using a 4 x 4 and Tegaderm. 11:27:08 Procedure ended.(Physican Out) 11:27:11 Post right femoral artery:stable, soft, clean and dry 11:27:14 Post Procedure Pulses reassessed and unchanged 11:27:18 Post procedure: right dorsailis pedis pulse 1+ Palpable, but thready & weak; easily obliterated. 11:27:21 Post-procedure physical assessment completed. ASA score P 2 - A patient with mild systemic disease as per Sang Berg MD. 11:27:24 Post procedure rhythm: unchanged. 11::27 Estimated blood loss: 10 ml 11::28 Post procedure instruction explained to patient.Patient verbalizes understanding. 11:27:29 Patient needs reinforcement of post procedure teaching. 11:28:43 Plavix 600 mg P.O. was administered by Cristiano Miller RN; for antiplatelet therapy; Verbal order read back and verified. 11:28:53 Procedure type changed to Cath procedure, Diagnostic procedure, LHC, LHC w/Coronaries w/Grafts, Sedation Charges, Moderate Sedation up to 45 minutes, PCI procedure, Coronary Stent, Coronary Stent Initial, Hemochron ACT Test 11::06 Procedure and supply charges have been captured, reviewed, submitted and are correct. 11:30:10 Procedure Complication : No complications 11:30:17 [facility] Findings: MVD- PCI performed (see procedure note) 11:30:18 Operative report dictated upon procedure completion. 11:30:18 See physician's report for complete and final results. 11:30:22 Report given to [facility]. 11:30:26 Patient transfered to [facility] with Bed. 11:32:11 ACT drawn and resulted at out of range high seconds. (normal therapeutic range 180-240 seconds). 11:33:51 Vital chart was stopped 11:33:58 ACC-PCI Only Patient was given prescriptions, or instructed by Sang Berg MD to start/continue the following medications upon discharge: Plavix 11:33:59 End room use (Document Last) 11:34:13 End room use (Document Last) 11:34:35 End room use (Document Last) Intervention Summary Intervention Notes Time ActionType Lesion and Equipment Used Action# Pressure Duration Attributes 11:23:[address] Place stent Prox CX ANT RX 3.0 x 1 14 00:20 15 stent ([id number]) Device Usage Item Name Manufacture Quantity Catalog Hospital Part [facility] Lot# / Number Charge Number Stock Stock Serial# Code ACIST Syringe Acist 1 53930 739157 549135 369931 20 (75961) Medical Systems Inc Bag Decanter Microtek 1 2001S 548348 43850 296435 5 () Medical Inc. Medline Cath Medline 1 [id number] 811033 74745 804439 5 Pack ([id number]) ACIST Hand Acist 1 66229 214078 163460 929580 5 Control Medical (25875) Systems Inc ACIST Manifold Acist 1 19825 633342 990702 716374 5 (24887) Medical Systems Inc DIAGNOSTIC Cardinal 1 GK3401 895382 85811 644431 30 Multipack 5Fr Health catheter set (IG7600) SHEATH 5FR Terumo 1 BAZ208 724314 910213 136938 5 Harrells (TMG455) EMERALD Guide Cardinal 1 502-455 767891 587325 432257 5 Wire (502-455) Health MULTIPACK JL Cardinal 1 829533 5 4.0 5Fr Health catheter DIAGNOSTIC AR Cardinal 1 826986P 955958 541005 650937 15 MOD 5Fr Health Catheter (913556O) DIAGNOSTIC IM Cardinal 1 [id number] 931318 981103 706949 5 5Fr catheter Health (926466L) MULTIPACK Cardinal 1 558722 5 Pigtail 5 Fr Health catheter INFLATOR Merit Merit 1 NU0075 739557 786135 504185 15 BasixCompak Medical (FC5222) TUBING High Merit 1 BE0119S 264723 34044 942057 10 Pressure Medical Extension Tubing (Berg) (PE0005S) BMW 300cm [place] 1 [id number] 912291 895777 617389 5 [place] 2 J Vascular wire (5760271P) SHEATH 6FR Terumo 1 YRN388 692441 714897 534411 40 Harrells (HMF856) GUIDE 6FR EBU Medtronic 1 [id number] 691571 73618 851277 1 3.75 catheter ([id number]) ANT RX 3.0 x Medtronic 1 [id number] 908533 9157297 691792 5 [id number] 15 stent ([id number]) EXOSEAL 6Fr Cardinal 1 EX600 948290 858982 591044 10 (EX600) Health Signature Audit [place] Stage Time Signature Unsigned Intra-Procedure 08/15/2019 Edie Hale 11:34:13 AM RT(R) Intra-Procedure 08/15/2019 Cristiano Miller RN 11:34:35 AM Intra-Procedure 08/15/2019 Sang Berg MD 11:34:57 AM [facility] [address] [place] [address]
[2019-08-14 11:31] LABS: BASOPHILS 0.3 % (0-2); EOSINOPHILS 2.9 % (0-7); HEMATOCRIT 36.8 % (42.0-54.0); IMMATURE GRANULOCYTES 0.3 % (0-5); LYMPHOCYTES 32.9 % (15-50); MCH 27.9 pg (26.0-34.0); MCHC 32.6 g/dL (31.0-37.0); MCV 85.6 fL (80.0-100.0); MEAN PLATELET VOLUME 10.3 fL (7.4-10.4); MONOCYTES 7.8 % (2-11); NEUTROPHILS 55.8 % (40-80); RDW 13.7 % (11.5-14.5); WBC 7.1 10x3/uL (4.8-10.8)
[2019-08-14 11:36] LABS: PLATELET COUNT 241 10x3/uL (130-400)
[2019-08-14 11:44] LABS: INR 0.94 (0.85-1.17); PROTIME 12.5 SECONDS (11.6-15.0)
[2019-08-14 11:59] LABS: CALC OSMOLALITY 289 mosm/kg (275-300); CALCIUM 8.4 mg/dL (8.5-10.1); CARBON DIOXIDE 29.6 mmol/L (21.0-32.0); CHLORIDE - SERUM 102 mmol/L (98-107); CREATININE - SERUM 1.7 mg/dL (0.6-1.3); POTASSIUM - SERUM 4.2 mmol/L (3.5-5.1); SODIUM 138 mmol/L (136-145); UREA NITROGEN 22 mg/dL (7-18); eGFR NON AFRICAN AMERICAN 42 mL/min (90-120)
[2019-08-14 12:00] LABS: GLUCOSE 291 mg/dL (74-106)
[2019-08-14 12:19] LABS: ALBUMIN 2.9 g/dL (3.4-5.0); ALKALINE PHOSPHATASE 112 U/L (30-120); ALT (SGPT) 22 U/L (10-68); BILIRUBIN - TOTAL 0.29 mg/dL (0.2-1.3); CREATINE KINASE 86 UL (21-232); MAGNESIUM - SERUM 1.8 mg/dL (1.8-2.4); PROTEIN - SERUM 6.3 g/dL (6.4-8.2)
[2019-08-14 12:23] LABS: TROPONIN-I 0.069 ng/mL (0.000-0.060)
--- NOTE | 2019-08-14 12:25 | NUR ---
TROPONIN ELEVATED AT 0.069, RESULTS GIVEN TO DR. MADRID.
[2019-08-14 13:00] VITALS: BP 142/88
--- NOTE | 2019-08-14 13:43 | NUR ---
PT TO ROOM FROM ER VIA WHEELCHAIR. ON PHONE CALLING FAMILY TO UPDATE. TELEMETRY PLACED. PT [facility] PATIENT, STATES [facility] SO ABLE TO STAY HERE. CHEST PAIN DENIED.
[2019-08-14 16:03] LABS: CHOL - HDL RATIO 5.4 ratio (2.3-4.9); LDL-HDL RATIO 2.8 ratio (1.5-3.5)
--- NOTE | 2019-08-14 17:21 | NUR ---
CONSENTS OBTAINED AND PLACED IN CHART FOR HEART CATH TOMORROW. PT NPO AFTER MIDNIGHT FOR PROCEDURE AND VERBALIZED UNDERSTANDING.
--- NOTE | 2019-08-14 18:22 | NUR ---
BLADDER SCAN COMPLETED ORDERED. 104ML NOTED. RELAYED MESSAGE TO .
[2019-08-14 18:41] VITALS: BP 168/65; BMI 40.3
[2019-08-14] MEDS ORDERED: LASIX80 MG PO (18:53)
[2019-08-14] MEDS ORDERED: NEURONTIN 300300 MG PO (18:54)
[2019-08-14] MEDS ORDERED: LIPITOR80 MG PO (18:54)
[2019-08-14 19:13] LABS: CREATINE KINASE 82 UL (21-232)
--- NOTE | 2019-08-14 19:15 | NUR ---
PATIENT MEDICATION WAS INCORRECT. SPOKE WITH BENJAMIN SMITH APN REGARDING MED REC. THIS RN CORRECTED MED REC PER PATIENT AND PATIENT MEDICATION LIST.
[2019-08-14 19:18] LABS: TROPONIN-I 0.067 ng/mL (0.000-0.060)
[2019-08-14 20:00] VITALS: BP 114/70
[2019-08-14] MEDS ORDERED: ACETAMINOPHEN500 M1 PO (20:16)
[2019-08-14] MEDS ORDERED: TOPROL XL100 MG PO (20:20)
[2019-08-14] MEDS ORDERED: EFFEXOR XR150 MG PO (20:23)
[2019-08-14] MEDS ORDERED: K-DUR20 MEQ PO (20:24)
[2019-08-14] MEDS ORDERED: VITAMIN B-121000 MCG PO (20:26)
[2019-08-14] MEDS ORDERED: FERROUS FUMARA324 MG PO (20:27)
[2019-08-14] MEDS ORDERED: FLUTICASONE PRO16 GM NASAL (20:28)
[2019-08-14] MEDS ORDERED: BASAGLAR K100 UNIT/1 SC (20:29)
[2019-08-14] MEDS ORDERED: CLARITIN 10 MG10 MG PO (20:29)
[2019-08-14] MEDS ORDERED: NITROQUICK0.4 MG SL (20:31)
[2019-08-14] MEDS ORDERED: NITROSTAT0.4 MG SL (20:31)
[2019-08-14] MEDS ORDERED: KENALOG 0.1 % 115 GM TOPICAL (20:32)
[2019-08-14] MEDS ORDERED: HYDROCORTISONE30 G8 TOPICAL (20:33)
[2019-08-14 23:55] LABS: CKMB 0.8 U/L (0.0-3.6); CREATINE KINASE 81 UL (21-232); TROPONIN-I 0.056 ng/mL (0.000-0.060)
[2019-08-15] VITALS: BP 169/87
[2019-08-15 04:00] VITALS: BP 157/80
[2019-08-15 05:52] LABS: BASOPHILS 0.3 % (0-2); EOSINOPHILS 3.6 % (0-7); HEMATOCRIT 36.4 % (42.0-54.0); HEMOGLOBIN 11.6 g/dL (13.5-17.5); IMMATURE GRANULOCYTES 0.3 % (0-5); LYMPHOCYTES 35.5 % (15-50); MCH 27.4 pg (26.0-34.0); MCHC 31.9 g/dL (31.0-37.0); MCV 86.1 fL (80.0-100.0); MEAN PLATELET VOLUME 10.5 fL (7.4-10.4); MONOCYTES 10.7 % (2-11); NEUTROPHILS 49.6 % (40-80); PLATELET COUNT 226 10x3/uL (130-400); RBC 4.23 10x6/uL (4.20-6.10); RDW 13.9 % (11.5-14.5); WBC 6.4 10x3/uL (4.8-10.8)
[2019-08-15 06:43] LABS: ALBUMIN 2.6 g/dL (3.4-5.0); ALKALINE PHOSPHATASE 99 U/L (30-120); ALT (SGPT) 18 U/L (10-68); BILIRUBIN - TOTAL 0.27 mg/dL (0.2-1.3); CALC OSMOLALITY 282 mosm/kg (275-300); CALCIUM 8.1 mg/dL (8.5-10.1); CARBON DIOXIDE 28.9 mmol/L (21.0-32.0); CHLORIDE - SERUM 105 mmol/L (98-107); CKMB 0.8 U/L (0.0-3.6); CREATINE KINASE 88 UL (21-232); CREATININE - SERUM 1.7 mg/dL (0.6-1.3); GLUCOSE 106 mg/dL (74-106); POTASSIUM - SERUM 3.9 mmol/L (3.5-5.1); PROTEIN - SERUM 5.8 g/dL (6.4-8.2); SODIUM 140 mmol/L (136-145); UREA NITROGEN 23 mg/dL (7-18); eGFR NON AFRICAN AMERICAN 42 mL/min (90-120)
[2019-08-15 06:45] LABS: TROPONIN-I 0.065 ng/mL (0.000-0.060)
[2019-08-15 09:08] VITALS: BP 153/77
[2019-08-15 09:48] LABS: UDS - AMPHET NEGATIVE QUAL (NEGATIVE); UDS - BARB NEGATIVE QUAL (NEGATIVE); UDS - BENZO NEGATIVE QUAL (NEGATIVE); UDS - COCAINE NEGATIVE QUAL (NEGATIVE); UDS - OPIATE NEGATIVE QUAL (NEGATIVE); UDS - PCP NEGATIVE QUAL (NEGATIVE); UDS - THC NEGATIVE QUAL (NEGATIVE)
--- NOTE | 2019-08-15 10:16 | NUR ---
PRE-OPS GIVEN. TO MAGNETIZER BY BED.
--- NOTE | 2019-08-15 11:56 | NUR ---
BACK FROM VICE PRESIDENT INDUSTRIAL RELATIONS. VS WNL. RIGHT GROIN STABLE WITHOUT BLEEDING OR HEMATOMA NOTED. WILL MONITOR.
--- NOTE | 2019-08-15 12:43 | NUR ---
ECHO COMPLETED AT BS.
[2019-08-15 12:57] VITALS: BP 155/74
[2019-08-15 13:13] VITALS: Ht 172.7 cm; Wt 120.2 kg
[2019-08-15 13:51] LABS: BACTERIA FEW /hpf (NEGATIVE); BILIRUBIN NEGATIVE (NEGATIVE); EPITHELIAL CELLS 0-5 /hpf (0-5); GLUCOSE NEGATIVE (NEGATIVE); KETONE NEGATIVE (NEGATIVE); NITRITE NEGATIVE (NEGATIVE); RED CELLS - URINE 0-5 /hpf (0-5); SPECIFIC GRAVITY 1.015 (1.005-1.020); UROBILINOGEN NORMAL (NORMAL); WHITE CELLS - URINE OCC /hpf (NEGATIVE)
--- NOTE | 2019-08-15 15:35 | NUR ---
BED REST UP. GROIN STABLE.
--- NOTE | 2019-08-15 19:13 | NUR ---
RECEIVED BEDSIDE REPORT. PATIENT IS ALERT AND ORIENTED, RESTING COMFORTABLY IN BED. RESPIRATIONS ARE EVEN AND UNLABORED. NO S/S OF DISTRESS. NO C/O PAIN. CALL LIGHT WITHIN REACH. WILL CPOC.
[2019-08-15 20:00] VITALS: BP 115/67
--- NOTE | 2019-08-15 20:15 | NUR ---
ARRIVED FROM ER VIA WHEELCHAIR. PATIENT IS ALERT AND ORIENTED. RESPIRATIONS ARE EVEN AND UNLABORED. NO S/S OF DISTRESS. NO C/O PAIN. CALL LIGHT WITHIN REACH. WILL CPOC.
--- NOTE | 2019-08-15 20:38 | NUR ---
FAMILY MEMBER CALLED AND INFORMED RN THAT PATIENT IS NOT SUPPOSE TO TAKE GABAPENTIN ANYMORE BECAUSE IT "MAKES HIM CRAZY". SPOKE WITH PATIENT. PATIENT SAID "I DON'T IF I AM SUPPOSE TO TAKE IT OR NOT. i TAKE THE MEDICATIONS THAT IS ON THE SHEET." NOTIFIED BENJAMIN SMITH APN. ORDERS TO HOLD GABAPENTIN GIVEN.
[2019-08-16] VITALS: BP 158/74
[2019-08-16 04:00] VITALS: BP 135/76
[2019-08-16 07:26] LABS: BASOPHILS 0.3 % (0-2); EOSINOPHILS 2.9 % (0-7); HEMATOCRIT 38.5 % (42.0-54.0); HEMOGLOBIN 12.3 g/dL (13.5-17.5); IMMATURE GRANULOCYTES 0.1 % (0-5); MCH 27.9 pg (26.0-34.0); MCHC 31.9 g/dL (31.0-37.0); MCV 87.3 fL (80.0-100.0); MEAN PLATELET VOLUME 10.3 fL (7.4-10.4); MONOCYTES 8.6 % (2-11); NEUTROPHILS 59.1 % (40-80); PLATELET COUNT 248 10x3/uL (130-400); RBC 4.41 10x6/uL (4.20-6.10); RDW 14.1 % (11.5-14.5); WBC 7.9 10x3/uL (4.8-10.8)
[2019-08-16 08:22] LABS: ANION GAP 12.7 mmol/L (8-16); CALCIUM 8.3 mg/dL (8.5-10.1); CREATININE - SERUM 1.8 mg/dL (0.6-1.3); POTASSIUM - SERUM 3.7 mmol/L (3.5-5.1)
[2019-08-16] MEDS ORDERED: PLAVIX75 MG PO (10:02)
[2019-08-16] MEDS ORDERED: LISINOPRIL2.5 MG PO (10:42)
--- NOTE | 2019-08-16 11:30 | NUR ---
IV AND TELEMETRY DCD. DC PLANS GIVEN. UNDERSTANDING VOICED. ESCORTED TO CAR BY W/C.
--- NOTE | 2019-08-17 13:12 | MORECARE ---
CASE MANAGEMENT DISCHARGE SUMMARY PATIENT: COLBY PARHAM UNIT: [id number] ADM DATE: 08/14/19 AGE: 73 : 43 SEX: M ROOM/BED: D.2116 AUTHOR: REJI POOL PHYSICIAN: REFERRING PHYSICIAN: GREER PÉREZ MD DATE OF SERVICE: 08/17/19 Discharge Plan Patient Name: COLBY PARHAM [facility] : 1945 Planned Disposition: Anticipated Discharge Date: Discharge Date: 08/16/2019 Expected LOS: 0 Initial Reviewer: [email or web address] Initial Review Date: 08/17/2019 Generated: 08/17/19 2:12 pm Patient Name: COLBY PARHAM Page 14062 at 1312 All edits/amendments must be made on the electronic document DICTATION DATE: 08/17/19 1312 CRM COORDINATOR: MICKY 08/17/19 1312 RPT#: [id number] DC DATE:08/16/19 STATUS: DIS IN [facility] [address] [place] [address] END OF REPORT
== END 2019-08-16 11:31 | disposition home or self-care (01) ==
LOC: D.ER 11:04 → D.M2 12:31 → OBSVTIME 23:26 → D.M2 08-16 11:31
PROVIDERS: Family Medicine; Internal Medicine Cardiovascular Disease; ADMIT Internal Medicine Nephrology; ATTEND Internal Medicine Nephrology
DX: I25.110 Atherosclerotic heart disease of native coronary artery with unstable angina pectoris (principal); D64.9 Anemia, unspecified; N17.9 Acute kidney failure, unspecified; I10 Essential (primary) hypertension; E78.5 Hyperlipidemia, unspecified; E11.42 Type 2 diabetes mellitus with diabetic polyneuropathy; N40.0 Benign prostatic hyperplasia without lower urinary tract symptoms; F41.8 Other specified anxiety disorders; F43.10 Post-traumatic stress disorder, unspecified; F12.10 Cannabis abuse, uncomplicated; I21.4 Non-ST elevation (NSTEMI) myocardial infarction

== ENCOUNTER 2019-09-06 17:54 | Emergency (ER) | payer OTHER ==
[~2019-09-06] VITALS: Ht 172.7 cm; Wt 120.5 kg
[~2019-09-06 17:54] MED LIST changes: +BASAGLAR K100 UNIT/1 SC; +CLARITIN 10 MG10 MG PO; +EFFEXOR XR150 MG PO; +FERROUS FUMARA324 MG PO; +FLUTICASONE PRO16 GM NASAL; +HYDROCORTISONE30 G8 TOPICAL; +K-DUR20 MEQ PO; +KENALOG 0.1 % 115 GM TOPICAL; +LASIX80 MG PO; +LIPITOR80 MG PO; +LISINOPRIL2.5 MG PO; +NEURONTIN 300300 MG PO; +NITROQUICK0.4 MG SL; +NITROSTAT0.4 MG SL; +PLAVIX75 MG PO; +TOPROL XL100 MG PO; +VITAMIN B-121000 MCG PO
[2019-09-06 18:02] VITALS: Ht 172.7 cm; Wt 120.5 kg
[2019-09-06 18:56] LABS: BASOPHILS 0.3 % (0-2); EOSINOPHILS 4.1 % (0-7); HEMATOCRIT 34.8 % (42.0-54.0); IMMATURE GRANULOCYTES 0.3 % (0-5); LYMPHOCYTES 30.7 % (15-50); MCH 27.5 pg (26.0-34.0); MCHC 31.6 g/dL (31.0-37.0); MONOCYTES 9.3 % (2-11); NEUTROPHILS 55.3 % (40-80); PLATELET COUNT 225 10x3/uL (130-400); RDW 13.7 % (11.5-14.5); WBC 6.2 10x3/uL (4.8-10.8)
[2019-09-06 18:59] LABS: APTT 28.9 SECONDS (22.8-39.4); INR 0.96 (0.85-1.17); PROTIME 12.7 SECONDS (11.6-15.0)
[2019-09-06 19:05] LABS: CALC OSMOLALITY 296 mosm/kg (275-300); CALCIUM 8.4 mg/dL (8.5-10.1); CARBON DIOXIDE 26.5 mmol/L (21.0-32.0); CHLORIDE - SERUM 104 mmol/L (98-107); CREATININE - SERUM 1.9 mg/dL (0.6-1.3); POTASSIUM - SERUM 4.3 mmol/L (3.5-5.1); SODIUM 139 mmol/L (136-145); UREA NITROGEN 25 mg/dL (7-18); eGFR NON AFRICAN AMERICAN 37 mL/min (90-120)
[2019-09-06 19:06] LABS: GLUCOSE 365 mg/dL (74-106)
[2019-09-06 19:23] LABS: ALBUMIN 2.7 g/dL (3.4-5.0); ALKALINE PHOSPHATASE 94 U/L (30-120); ALT (SGPT) 19 U/L (10-68); BILIRUBIN - TOTAL 0.29 mg/dL (0.2-1.3); CKMB 2.3 U/L (0.0-3.6); CREATINE KINASE 109 UL (21-232); PRO BNP 1429 pg/mL (0-450); PROTEIN - SERUM 6.6 g/dL (6.4-8.2); TROPONIN-I 0.059 ng/mL (0.000-0.060)
[2019-09-06 20:30] VITALS: BP 142/81
== END 2019-09-06 20:31 | disposition home or self-care (01) ==
LOC: D.ER 17:54
PROVIDERS: Emergency Medicine
DX: I11.0 Hypertensive heart disease with heart failure (principal); I50.9 Heart failure, unspecified; J44.9 Chronic obstructive pulmonary disease, unspecified; E11.40 Type 2 diabetes mellitus with diabetic neuropathy, unspecified; I25.2 Old myocardial infarction; Z79.4 Long term (current) use of insulin

== ENCOUNTER 2019-10-15 08:29 | Inpatient (IN) | payer MEDICARE ==
[~2019-10-15] VITALS: Ht 172.7 cm; Wt 127.0 kg
[2019-10-15] VITALS (7 sets, daily range): BP systolic 151–187; BP diastolic 74–95; BMI 42.6
[2019-10-15] MEDS ORDERED: RANITIDINE (08:53)
[2019-10-15] MEDS ORDERED: VIAGRA50 MG PO (08:53)
[2019-10-15] MEDS ORDERED: ICAPS PO (08:53)
[2019-10-15] MEDS ORDERED: [UNRECOGNIZED DRUG - OTHER] TOPICAL (08:54)
[2019-10-15 09:34] LABS: BASOPHILS 0.2 % (0-2); EOSINOPHILS 3.4 % (0-7); HEMATOCRIT 34.7 % (42.0-54.0); HEMOGLOBIN 11.1 g/dL (13.5-17.5); IMMATURE GRANULOCYTES 0.2 % (0-5); LYMPHOCYTES 30.2 % (15-50); MCH 26.8 pg (26.0-34.0); MCV 83.8 fL (80.0-100.0); MEAN PLATELET VOLUME 10.2 fL (7.4-10.4); MONOCYTES 8.6 % (2-11); NEUTROPHILS 57.4 % (40-80); PLATELET COUNT 190 10x3/uL (130-400); RBC 4.14 10x6/uL (4.20-6.10); RDW 13.4 % (11.5-14.5); WBC 5.9 10x3/uL (4.8-10.8)
[2019-10-15 09:48] LABS: APTT 27.7 SECONDS (22.8-39.4); INR 0.95 (0.85-1.17); PROTIME 12.7 SECONDS (11.6-15.0)
[2019-10-15 09:52] LABS: CALC OSMOLALITY 290 mosm/kg (275-300); CALCIUM 8.3 mg/dL (8.5-10.1); CARBON DIOXIDE 30.2 mmol/L (21.0-32.0); CHLORIDE - SERUM 104 mmol/L (98-107); CREATININE - SERUM 1.9 mg/dL (0.6-1.3); POTASSIUM - SERUM 3.9 mmol/L (3.5-5.1); SODIUM 139 mmol/L (136-145); UREA NITROGEN 26 mg/dL (7-18); eGFR NON AFRICAN AMERICAN 37 mL/min (90-120)
[2019-10-15 09:54] LABS: GLUCOSE 240 mg/dL (74-106)
[2019-10-15 10:03] LABS: ALBUMIN 2.9 g/dL (3.4-5.0); ALKALINE PHOSPHATASE 83 U/L (30-120); ALT (SGPT) 23 U/L (10-68); BILIRUBIN - TOTAL 0.37 mg/dL (0.2-1.3); CREATINE KINASE 106 UL (21-232); MAGNESIUM - SERUM 1.7 mg/dL (1.8-2.4); PROTEIN - SERUM 6.6 g/dL (6.4-8.2); THYROID STIMULATING HORMONE 3.91 uIU/mL (0.36-3.74); TROPONIN-I < 0.017 ng/mL (0.000-0.060)
--- NOTE | 2019-10-15 12:07 | NUR ---
COIL SPRING ASSEMBLER STATES PT REFUSED MRI.
--- NOTE | 2019-10-15 12:50 | NUR ---
PT REFUSED MRI. DR DE PAZ INFORMED. MRI CANCELLED.
[2019-10-15 16:28] LABS: % SATURATION 19 % (15-55); IRON 46 ug/dl (35-150); TOTAL IRON BIND CAPACITY 236 ug/dl (260-445); UNSAT IRON BIND CAPACITY 190 ug/dl (150-375)
--- NOTE | 2019-10-15 20:25 | NUR ---
LYING IN BED. YELLED AND CURSED AT STAFF UPON ENTERING ROOM ABOUT WANTING TO EAT. EXPLAINED TO PT THAT HE IS NPO BECAUSE HE CHOKED ON HIS FOOD DURING THE SWALLOW STUDY. HE VERBALIZED UNDERSTANDING AND APOLOGIZED. RT SIDED WEAKNESS NOTED. PT IS LEGALLY BLIND. BRODERICK ALARM ON. ALERT AND ORIENTED X2, SELF AND PLACE. CONFUSED TO TIME. INCONT AT TIMES. TELEMETRY SHOWS SR WITH RATE OF 68. SALINE LOCK NOTED TO LT AC. SR ELEVATED X2. CL IN REACH.
[2019-10-16] VITALS: BP 137/64
--- NOTE | 2019-10-16 03:22 | NUR ---
HAS BEEN WORRIED ABOUT HIS BLOOD SUGAR DROPPING ALL NIGHT AND HAS REQUESTED FSBS CHECK TWICE. IT WAS 99 AT 2300 AND 86 @ 0300.
[2019-10-16 04:00] VITALS: BP 145/81
[2019-10-16 05:29] LABS: BASOPHILS 0.2 % (0-2); EOSINOPHILS 2.9 % (0-7); HEMATOCRIT 33.4 % (42.0-54.0); HEMOGLOBIN 10.7 g/dL (13.5-17.5); IMMATURE GRANULOCYTES 0.2 % (0-5); LYMPHOCYTES 31.7 % (15-50); MCV 84.1 fL (80.0-100.0); MEAN PLATELET VOLUME 10.7 fL (7.4-10.4); MONOCYTES 8.5 % (2-11); NEUTROPHILS 56.5 % (40-80); PLATELET COUNT 194 10x3/uL (130-400); RBC 3.97 10x6/uL (4.20-6.10); RDW 13.5 % (11.5-14.5); WBC 5.9 10x3/uL (4.8-10.8)
[2019-10-16 06:01] LABS: ANION GAP 11.2 mmol/L (8-16); CALCIUM 8.3 mg/dL (8.5-10.1); CARBON DIOXIDE 28.2 mmol/L (21.0-32.0); CREATININE - SERUM 1.5 mg/dL (0.6-1.3); POTASSIUM - SERUM 3.4 mmol/L (3.5-5.1)
--- NOTE | 2019-10-16 07:41 | NUR ---
RESTING IN BED, NO DISTRESS NOTED, SL IN PLACE, BLIND, CONT TO MONITOR SUGARS, NPO AT PRESENT
[2019-10-16 09:14] VITALS: BP 162/86
--- NOTE | 2019-10-16 11:29 | NUR ---
SPOKE WITH SOMEONE IN THERAPY, STATES THAT SPEECH IS OUT TILL AFTER LUNCH AND WILL SEE PT AFTER THAT
[2019-10-16 13:01] VITALS: Ht 172.7 cm; Wt 127.0 kg
[2019-10-16 13:59] VITALS: BP 167/67
[2019-10-16 17:10] VITALS: BP 167/71
[2019-10-16 20:00] VITALS: BP 150/56
[2019-10-16 22:44] LABS: BILIRUBIN NEGATIVE (NEGATIVE); GLUCOSE NEGATIVE (NEGATIVE); KETONE NEGATIVE (NEGATIVE); NITRITE NEGATIVE (NEGATIVE); UROBILINOGEN NORMAL (NORMAL)
[2019-10-16 22:45] LABS: RED CELLS - URINE OCC /hpf (0-5); WHITE CELLS - URINE OCC /hpf (NEGATIVE)
[2019-10-17] VITALS: BP 146/54
[2019-10-17 04:00] VITALS: BP 150/56
[2019-10-17 04:43] LABS: HEMATOCRIT 34.7 % (42.0-54.0); HEMOGLOBIN 11.2 g/dL (13.5-17.5); LYMPHOCYTES 35.2 % (15-50); MCH 27.1 pg (26.0-34.0); MCHC 32.3 g/dL (31.0-37.0); MEAN PLATELET VOLUME 10.4 fL (7.4-10.4); NEUTROPHILS 54.3 % (40-80); PLATELET COUNT 195 10x3/uL (130-400); RBC 4.13 10x6/uL (4.20-6.10); RDW 13.4 % (11.5-14.5); WBC 5.5 10x3/uL (4.8-10.8)
[2019-10-17 04:51] LABS: ALBUMIN 2.8 g/dL (3.4-5.0); BILIRUBIN - TOTAL 0.38 mg/dL (0.2-1.3); CALCIUM 8.2 mg/dL (8.5-10.1); CARBON DIOXIDE 31.4 mmol/L (21.0-32.0); CREATININE - SERUM 1.8 mg/dL (0.6-1.3); PROTEIN - SERUM 6.3 g/dL (6.4-8.2)
[2019-10-17 04:58] LABS: ANION GAP 7.6 mmol/L (8-16)
--- NOTE | 2019-10-17 07:28 | NUR ---
PT IS RESTING IN BED WITH EYES OPEN. RESPIRATIONS ARE EVEN AND UNLABORED. PT IS AAO X 4. PT ANSWERS ALL QUESTIONS CLEARLY AND APPROPRIATELY. PT DENIES PRESENCE OF PAIN/N/V AT THIS TIME. PIV TO LEFT AC INFUSING WITHOUT DIFFICULTY. ALL FALL PRECAUTIONS IN PLACE. INCENTIVE SPIROMETER AT BEDSIDE. PT GIVES APPROPRIATE DEMONSTRATION OF INCENTIVE SPIROMETER USE. ALL FALL PRECAUTIONS IN PLACE. BED IS IN THE LOWEST POSITION. CALL LIGHT AND BEDSIDE TABLE ARE WITHIN REACH. SIDE RAILS X 2. PT DENIES FURTHER NEEDS. WILL CONT TO MONITOR.
--- NOTE | 2019-10-17 08:58 | NUR ---
DR REYES CALLED INQUIRING ON PT STATE. ALL QUESTIONS ANSWERED TO BEST OF THIS NURSE ABILITY. TELEPHONE ORDERS RECD ARE TO START PLAVIX 75MG PO DAILY. ORDERS PLACED.
[2019-10-17 09:12] VITALS: BP 130/78
--- NOTE | 2019-10-17 09:18 | NUR ---
PT HAVING LOOSE DARK STOOLS. STATES HAS BEEN A GI BLEED IN THE PAST.
[2019-10-17 13:20] VITALS: BP 141/52
--- NOTE | 2019-10-17 15:26 | MORECARE ---
CASE MANAGEMENT DISCHARGE SUMMARY PATIENT: COLBY PAHRAM UNIT: [id number] ADM DATE: 10/15/19 AGE: 74 : 43 SEX: M ROOM/BED: D.2210 AUTHOR: REJI POOL PHYSICIAN: REFERRING PHYSICIAN: CR RUIZ MD DATE OF SERVICE: 10/17/19 Discharge Plan Patient Name: COLBY PARHAM [facility] [facility] 1945 Planned Disposition: Home or Self Care Anticipated Discharge Date: Discharge Date: Expected LOS: Initial Reviewer: [email or web address] Initial Review Date: 10/15/2019 Generated: 10/17/19 4:25 pm DCPIA - Discharge Planning Initial Assessment Updated by [email or web address]: Krista Panda on 10/17/19 3:24 pm * Is the patient Alert and Oriented? Yes * How many steps to enter\exit or inside your home? RAMP * PCP MARIA ISABEL ([facility]) * Pharmacy [place] * Preadmission Environment Home with Family * ADLs Partial Dependent * Partial ADLs (Assistance needed) Bathing * Equipment Glucometer Rolling Walker Walker Wheelchair * List name and contact numbers for known caregivers / representatives who currently or will assist patient after discharge: KASSANDRA SILVA [phone] * Verbal permission to speak to the caregivers and representatives has been obtained from the patient. N/A * Community resources currently utilized None * Additional services required to return to the preadmission environment? Yes * Can the patient safely return to the preadmission environment? Yes * Has this patient been hospitalized within the prior 30 days at any hospital? No Patient Name: COLBY PARHAM Page 00642 at 1526 All edits/amendments must be made on the electronic document DICTATION DATE: 10/17/19 152 CYTOLOGY TECHNOLOGIST: MICKY 10/17/19 1526 RPT#: [id number] DC DATE: STATUS: ADM IN [facility] [address] [place] [address] END OF REPORT
--- NOTE | 2019-10-17 15:34 | MORECARE ---
CASE MANAGEMENT DISCHARGE SUMMARY PATIENT: COLBY PARHAM UNIT: [id number] ADM DATE: 10/15/19 AGE: 74 : 43 SEX: M ROOM/BED: D.2210 AUTHOR: REJI POOL PHYSICIAN: REFERRING PHYSICIAN: CR RUIZ MD DATE OF SERVICE: 10/17/19 Discharge Plan Patient Name: COLBY PARHAM Facility: [facility]:[place] : 1945 Planned Disposition: Home or Self Care Anticipated Discharge Date: Discharge Date: Expected LOS: Initial Reviewer: [email or web address] Initial Review Date: 10/15/2019 Generated: 10/17/19 4:33 pm Comments DCP- Discharge Planning Updated by [email or web address]: Krista Panda on 10/17/19 2:[address] Patient Name: COLBY PARHAM Admission Status: ER Accout number: [id number] Admission Date: 10-15-2019 : 1945 Admission Diagnosis:CEREBRAL INFARCTION, UNSPECIFIED Attending: CR RUIZ Current LOS: 2 Anticipated DC Date: Planned Disposition: Home or Self Care Primary Insurance: [employer] Discharge Planning Comments: CM met with patient to complete initial dc planning assessment. CM educated patient on the CM role and verbal consent given by patient to complete assessment. Patient lives at home with his sister. He said that he needs help with bathing. At discharge patient plans to return home and feels this is a safe discharge, but would like to get to an Assisted Living with the [facility]. CM discussed availability of home health, rehab services, and medical equipment. He said he has a rollator, walker, cane, glucometer that he uses at home. He is unsure of who will take him home, but he did say he has a daughter who lives local. He also mentioned he has a separate insurance that he could get 300.00 a day for extra help at home. (yaneth is his commercial insurance underwriter) IMM served and explained. Patient denied known discharge needs at this time. CM will continue to follow and will assist as needed with dc plans/needs. Bulk Driver: Krista Panda DCPIA - Discharge Planning Initial Assessment Updated by [email or web address]: Krista Panda on 6/11/20 3:24 pm * Is the patient Alert and Oriented? Yes * How many steps to enter\exit or inside your home? RAMP * PCP MARIA ISABEL ([place]) * Pharmacy [place] * Preadmission Environment Home with Family * ADLs Partial Dependent * Partial ADLs (Assistance needed) Bathing * Equipment Glucometer Rolling Walker Walker Wheelchair * List name and contact numbers for known caregivers / representatives who currently or will assist patient after discharge: KASSANDRA SILVA [phone] * Verbal permission to speak to the caregivers and representatives has been obtained from the patient. N/A * Community resources currently utilized None * Additional services required to return to the preadmission environment? Yes * Can the patient safely return to the preadmission environment? Yes * Has this patient been hospitalized within the prior 30 days at any hospital? No Coverage Notice Reviewer: [email or web address] Devora Panda Notice Issued Date-Time: 10/17/2019 14:50 Notice Type: IM Discharge Notice Notice Delivered To: Patient Relationship to Patient: Ichthyology Teacher Name: Delivery Method: HAND - Hand Delivered Mayra Days: Prior Verbal Notification: Recipient Understood Notice: Yes Recipient Signature: Yes Med Rec Note Co-signed by Attending: Coverage Notice Comment: imm served and explained Last DP export: 10/17/19 2:26 p Patient Name: COLBY PARHAM Page [id number] at 1534 All edits/amendments must be made on the electronic document DICTATION DATE: 10/17/191532 RAMP BOSS: MICKY 10/17/191532 RPT#: [id number] DC DATE: STATUS: ADM IN [facility] [address] [place] [address] END OF REPORT
--- NOTE | 2019-10-17 15:47 | MORECARE ---
CASE MANAGEMENT DISCHARGE SUMMARY PATIENT: COLBY PARHAM UNIT: [id number] ADM DATE: 10/15/19 AGE: 74 : 43 SEX: M ROOM/BED: D.2210 AUTHOR: CORINEDOC PHYSICIAN: REFERRING PHYSICIAN: CR RUIZ MD DATE OF SERVICE: 10/17/19 Discharge Plan Patient Name: COLBY PARHAM Facility: [facility]:[place] : 1945 Planned Disposition: Home or Self Care Anticipated Discharge Date: Discharge Date: Expected LOS: Initial Reviewer: [email or web address] Initial Review Date: 10/15/2019 Generated: 10/17/19 4:46 pm Comments DCP- Discharge Planning Updated by [email or web address]: Krista Panda on 10/17/19 2:[address] Called Romain at the ID with [facility] ([phone]) to ask about Assisted Living with the [facility], she did not know who to direct me to, but she was getting information and will get back with me to help direct us where to go. CM to follow and assist as needed DCP- Discharge Planning Updated by [email or web address]: Krista Panda on 10/17/19 2:[address] Patient Name: COLBY PARHAM Admission Status: ER Accout number: [id number] Admission Date: 10-15-2019 : 1945 Admission Diagnosis:CEREBRAL INFARCTION, UNSPECIFIED Attending: CR RUIZ Current LOS: 2 Anticipated DC Date: Planned Disposition: Home or Self Care Primary Insurance: [facility] [employer] Discharge Planning Comments: CM met with patient to complete initial dc planning assessment. CM educated patient on the CM role and verbal consent given by patient to complete assessment. Patient lives at home with his sister. He said that he needs help with bathing. At discharge patient plans to return home and feels this is a safe discharge, but would like to get to an Assisted Living with the [facility]. CM discussed availability of home health, rehab services, and medical equipment. He said he has a rollator, walker, cane, glucometer that he uses at home. He is unsure of who will take him home, but he did say he has a daughter who lives local. He also mentioned he has a separate insurance that he could get 300.00 a day for extra help at home. (yaneth is his assurance senior manager insurance) IMM served and explained. Patient denied known discharge needs at this time. CM will continue to follow and will assist as needed with dc plans/needs. Manager Real Estate: Krista Panda DCPIA - Discharge Planning Initial Assessment Updated by [email or web address]: Krista Panda on 10/17/19 3:24 pm * Is the patient Alert and Oriented? Yes * How many steps to enter\exit or inside your home? RAMP * PCP MARIA ISABEL ([facility] * Pharmacy [place] * Preadmission Environment Home with Family * ADLs Partial Dependent * Partial ADLs (Assistance needed) Bathing * Equipment Glucometer Rolling Walker Walker Wheelchair * List name and contact numbers for known caregivers / representatives who currently or will assist patient after discharge: KASSANDRA SILVA [phone] * Verbal permission to speak to the caregivers and representatives has been obtained from the patient. N/A * Community resources currently utilized None * Additional services required to return to the preadmission environment? Yes * Can the patient safely return to the preadmission environment? Yes * Has this patient been hospitalized within the prior 30 days at any hospital? No Coverage Notice Reviewer: [id number] - Krista Panda Notice Issued Date-Time: 10/17/2019 14:50 Notice Type: IM Discharge Notice Notice Delivered To: Patient Relationship to Patient: Tester Vibrator Equipment Name: Delivery Method: HAND - Hand Delivered Mayra Days: Prior Verbal Notification: Recipient Understood Notice: Yes Recipient Signature: Yes Med Rec Note Co-signed by Attending: Coverage Notice Comment: imm served and explained Last DP export: 10/17/19 2:34 p Patient Name: COLBY PARHAM Page 86198 at 1547 All edits/amendments must be made on the electronic document DICTATION DATE: 10/17/191545 BRANCH SPECIALIST: MICKY 10/17/19 154 RPT#: [id number] DC DATE: STATUS: ADM IN [facility] [address] [place] [address] END OF REPORT
[2019-10-17 16:45] VITALS: BP 147/76
[2019-10-17 20:00] VITALS: BP 136/53
[2019-10-18] VITALS: BP 158/83
[2019-10-18 04:00] VITALS: BP 138/60
[2019-10-18 06:02] LABS: BASOPHILS 0.2 % (0-2); EOSINOPHILS 3.4 % (0-7); HEMATOCRIT 34.7 % (42.0-54.0); LYMPHOCYTES 28.1 % (15-50); MCHC 31.7 g/dL (31.0-37.0); MCV 85.3 fL (80.0-100.0); MEAN PLATELET VOLUME 10.6 fL (7.4-10.4); MONOCYTES 8.9 % (2-11); NEUTROPHILS 59.4 % (40-80); PLATELET COUNT 201 10x3/uL (130-400); RBC 4.07 10x6/uL (4.20-6.10); RDW 13.4 % (11.5-14.5); WBC 6.2 10x3/uL (4.8-10.8)
[2019-10-18 06:35] LABS: ANION GAP 10.1 mmol/L (8-16); BILIRUBIN - TOTAL 0.48 mg/dL (0.2-1.3); CALCIUM 8.3 mg/dL (8.5-10.1); CARBON DIOXIDE 28.6 mmol/L (21.0-32.0); CREATININE - SERUM 1.8 mg/dL (0.6-1.3); POTASSIUM - SERUM 3.7 mmol/L (3.5-5.1); PROTEIN - SERUM 6.8 g/dL (6.4-8.2)
--- NOTE | 2019-10-18 07:36 | NUR ---
PT RESTING IN BED, ALERT AND ORIENTED. CURRENTLY RCVING 1L VIA NC. IV LOCATED TO LEFT FA CURRENT RUNNING NS @ 100ML. NO S/S OF DISTRESS AT THIS TIME, DENIES NEEDS AT THIS TIME, WILL CONT TO MONITOR.
[2019-10-18 09:08] VITALS: BP 152/64
[2019-10-18 12:15] VITALS: BP 133/52
--- NOTE | 2019-10-18 15:30 | NUR ---
PT PULLED OUT IV, STATES HE IS GOING TO REHAB AND DOESNT NEED IT OR WANT IT BACK IN.
--- NOTE | 2019-10-18 16:42 | NUR ---
Rehab Prescreening Consult recieved and the chart has been reviewed. According to the demographic info he is a VA patient without a secondary. Discussed in the IDT meeting this AM, if patient has Medicare A as a secondary and is willing to waive his VA benefits he could be considered for the ARU. Jeannette Mckeon RN Clinical Liaison, Rehab
[2019-10-18 16:59] VITALS: BP 130/54
[2019-10-18 20:00] VITALS: BP 157/59
--- NOTE | 2019-10-18 20:25 | NUR ---
AWAKE,ALERT,NO COMPALINTS VOCED. RESP UNLABORED. CL IN REACH.FALL PRECAUTIONS IN PLACE.
[2019-10-19 04:00] VITALS: BP 159/62
--- NOTE | 2019-10-19 04:36 | NUR ---
I have reviewed this patient and I concur with the Shift Assessment completed by the Licensed Practical Nurse today this shift.
[2019-10-19 07:09] LABS: BASOPHILS 0.2 % (0-2); EOSINOPHILS 2.9 % (0-7); HEMATOCRIT 34.5 % (42.0-54.0); HEMOGLOBIN 11.1 g/dL (13.5-17.5); IMMATURE GRANULOCYTES 0.2 % (0-5); LYMPHOCYTES 31.7 % (15-50); MCH 27.5 pg (26.0-34.0); MCHC 32.2 g/dL (31.0-37.0); MCV 85.4 fL (80.0-100.0); MEAN PLATELET VOLUME 10.4 fL (7.4-10.4); MONOCYTES 9.8 % (2-11); NEUTROPHILS 55.2 % (40-80); PLATELET COUNT 197 10x3/uL (130-400); RBC 4.04 10x6/uL (4.20-6.10); RDW 13.4 % (11.5-14.5); WBC 5.8 10x3/uL (4.8-10.8)
[2019-10-19 07:25] LABS: ANION GAP 9.6 mmol/L (8-16); BILIRUBIN - TOTAL 0.55 mg/dL (0.2-1.3); CALCIUM 8.3 mg/dL (8.5-10.1); CARBON DIOXIDE 30.3 mmol/L (21.0-32.0); CREATININE - SERUM 1.9 mg/dL (0.6-1.3); POTASSIUM - SERUM 3.9 mmol/L (3.5-5.1); PROTEIN - SERUM 6.3 g/dL (6.4-8.2)
[2019-10-19 07:54] VITALS: BP 172/75
--- NOTE | 2019-10-19 08:00 | NUR ---
ALERT AND OREINTED X4. PATIENT IS FALL RISK BUT HAS SIGNED WAIVER. DENIES ANY PAIN OR DISCOMFORT WITH GENERALIZED WEAKNESS NOTED. PATIENT AMBUATES IN ROOM HOLDING ONTO ITEMS IN ROOM DUE TO POOR VISUAL ACUITY . TELEMETRY INTACT. DENIES ANY PAIN OR DISCOMFORT AT THIS TIME AND ENCOURAGED TO USE CALL LIGHT FOR ASSIST. REFUSES SCD'S
[2019-10-19 12:06] VITALS: BP 135/90
[2019-10-19 17:39] VITALS: BP 115/42
--- NOTE | 2019-10-19 18:15 | NUR ---
OT NOTE: (10/18/2019) PT COMPLETED SUPINE TO SIT WITH MIN A. PT COMPLETED EOB SITTING WITH SBA. PT COMPLETED UE AROM TOLERATED. [phone] JESUS CUMMINGS COTA
[2019-10-19 20:00] VITALS: BP 142/53
[2019-10-20 04:00] VITALS: BP 108/69
[2019-10-20 06:38] LABS: BASOPHILS 0.2 % (0-2); EOSINOPHILS 2.6 % (0-7); HEMATOCRIT 36.6 % (42.0-54.0); HEMOGLOBIN 11.7 g/dL (13.5-17.5); IMMATURE GRANULOCYTES 0.2 % (0-5); LYMPHOCYTES 32.4 % (15-50); MCH 27.1 pg (26.0-34.0); MCV 84.9 fL (80.0-100.0); MEAN PLATELET VOLUME 10.3 fL (7.4-10.4); MONOCYTES 8.9 % (2-11); NEUTROPHILS 55.7 % (40-80); PLATELET COUNT 200 10x3/uL (130-400); RBC 4.31 10x6/uL (4.20-6.10); RDW 13.5 % (11.5-14.5); WBC 6.2 10x3/uL (4.8-10.8)
[2019-10-20 07:02] LABS: ANION GAP 11.9 mmol/L (8-16); BILIRUBIN - TOTAL 0.53 mg/dL (0.2-1.3); CALCIUM 8.8 mg/dL (8.5-10.1); CARBON DIOXIDE 29.9 mmol/L (21.0-32.0); CREATININE - SERUM 1.8 mg/dL (0.6-1.3); POTASSIUM - SERUM 3.8 mmol/L (3.5-5.1)
[2019-10-20 08:22] VITALS: BP 160/68
--- NOTE | 2019-10-20 11:04 | NUR ---
ALERT AND ORIENTED X4 PATINET HAS IMPIARED VISUAL ACCUITY DUE TO CVA. AMBULATES IN ROOM WUSING FUNITURE IN ROOM FOR GUIDANCE. ENCOURAGED TO USE CALL LIGHT FOR ASSSIT. REFUSES SCD'S. TRACE EDEMA NOTED TO BLE WITH PEDAL PULSES NOTED. TELEMETRY INTACT AND DENIES ANY CHEST PAIN OR DISCOMFORT.
[2019-10-20 12:14] VITALS: BP 126/38
[2019-10-20 16:12] VITALS: BP 156/51
[2019-10-20 20:29] VITALS: BP 141/72
[2019-10-21] VITALS (7 sets, daily range): BP systolic 91–143; BP diastolic 57–69
[2019-10-21 04:38] LABS: BASOPHILS 0.2 % (0-2); EOSINOPHILS 3.5 % (0-7); HEMATOCRIT 36.3 % (42.0-54.0); HEMOGLOBIN 11.4 g/dL (13.5-17.5); IMMATURE GRANULOCYTES 0.2 % (0-5); LYMPHOCYTES 33.1 % (15-50); MCH 26.7 pg (26.0-34.0); MCHC 31.4 g/dL (31.0-37.0); MEAN PLATELET VOLUME 10.5 fL (7.4-10.4); MONOCYTES 10.1 % (2-11); NEUTROPHILS 52.9 % (40-80); PLATELET COUNT 212 10x3/uL (130-400); RBC 4.27 10x6/uL (4.20-6.10); RDW 13.4 % (11.5-14.5); WBC 6.2 10x3/uL (4.8-10.8)
[2019-10-21 05:04] LABS: ALBUMIN 2.8 g/dL (3.4-5.0); ANION GAP 9.3 mmol/L (8-16); BILIRUBIN - TOTAL 0.41 mg/dL (0.2-1.3); CALCIUM 8.4 mg/dL (8.5-10.1); CARBON DIOXIDE 32.4 mmol/L (21.0-32.0); CREATININE - SERUM 1.9 mg/dL (0.6-1.3); POTASSIUM - SERUM 3.7 mmol/L (3.5-5.1); PROTEIN - SERUM 6.7 g/dL (6.4-8.2)
--- NOTE | 2019-10-21 07:15 | NUR ---
I have reviewed this patient and I concur with the Shift Assessment completed by the Licensed Practical Nurse today this shift.
--- NOTE | 2019-10-21 07:15 | NUR ---
SHIFT REPORT TAKEN. PATIENT SITTING ON SIDE OF BED. AWAKE AND "READY FOR BREAKFAST." WHEN ASKED WHETHER OR NOT HE HAD ANY GOALS FOR TODAY HE RESPONDED "TO GET OUT OF HERE." CL IN REACH. NO FURTHER NEEDS AT THIS TIME. TM
--- NOTE | 2019-10-21 10:00 | NUR ---
REASSESSED PT VITAL SIGNS BECAUSE THEY HAVE NOT BEEN BELOW 100 SYSTOLIC SINCE HE HAS ARRIVED. WELL TO ENSURE PATIENT GOT BP MEDICATIONS IF NEEDED. CL IN REACH. WCTM
--- NOTE | 2019-10-21 15:05 | NUR ---
PATIENT SITTING ON SIDE OF BED. CL IN REACH. NO NEEDS AT THIS TIME. WCTM
--- NOTE | 2019-10-21 15:44 | MORECARE ---
CASE MANAGEMENT DISCHARGE SUMMARY PATIENT: COLBY PARHAM UNIT: [id number] ADM DATE: 10/15/19 AGE: 74 : 43 SEX: M ROOM/BED: D.2210 AUTHOR: REJI POOL PHYSICIAN: REFERRING PHYSICIAN: CR RUIZ MD DATE OF SERVICE: 10/21/19 Discharge Plan Patient Name: COLBY PARHAM Facility: [facility]:[place] : 1945 Planned Disposition: Home or Self Care Anticipated Discharge Date: Discharge Date: Expected LOS: Initial Reviewer: [id number] Initial Review Date: 10/15/2019 Generated: 10/21/19 4:43 pm Comments DCP- Discharge Planning Updated by [email or web address]: Aimee Hammond on 10/21/19 2:[address] Patient is in agreement with using his Medicare for Rehab. Notified admissions of same and request that signature for Declination VA be signed. Notified [facility] of same. Plan to go into rehab 10/21. MARISA has been signed by patient. DCP- Discharge Planning Updated by [id number]: Krista Panda on 10/17/19 2:[address] Called Romain at the [facility] with [facility] ([phone]) to ask about Assisted Living with the [facility], she did not know who to direct me to, but she was getting information and will get back with me to help direct us where to go. CM to follow and assist as needed DCP- Discharge Planning Updated by [email or web address]: Krista Panda on 10/17/19 2:[address] Patient Name: COLBY PARHAM Admission Status: ER Accout number: [id number] Admission Date: 10-15-2019 : 1945 Admission Diagnosis:CEREBRAL INFARCTION, UNSPECIFIED Attending: CR RUIZ Current LOS: 2 Anticipated DC Date: Planned Disposition: Home or Self Care Primary Insurance: [employer] Discharge Planning Comments: CM met with patient to complete initial dc planning assessment. CM educated patient on the CM role and verbal consent given by patient to complete assessment. Patient lives at home with his sister. He said that he needs help with bathing. At discharge patient plans to return home and feels this is a safe discharge, but would like to get to an Assisted Living with the VA. CM discussed availability of home health, rehab services, and medical equipment. He said he has a rollator, walker, cane, glucometer that he uses at home. He is unsure of who will take him home, but he did say he has a daughter who lives local. He also mentioned he has a separate insurance that he could get 300.00 a day for extra help at home. (yaneth is his insurance specialist) IMM served and explained. Patient denied known discharge needs at this time. CM will continue to follow and will assist as needed with dc plans/needs. Statement Clerk: Krista Panda DCPIA - Discharge Planning Initial Assessment Updated by [id number]: Krista Panda on 10/17/19 3:24 pm * Is the patient Alert and Oriented? Yes * How many steps to enter\exit or inside your home? RAMP * PCP MARIA ISABEL ([facility] * [place] * Preadmission Environment Home with Family * ADLs Partial Dependent * Partial ADLs (Assistance needed) Bathing * Equipment Glucometer Rolling Walker Walker Wheelchair * List name and contact numbers for known caregivers / representatives who currently or will assist patient after discharge: KASSANDRA SILVA [phone] * Verbal permission to speak to the caregivers and representatives has been obtained from the patient. N/A * Community resources currently utilized None * Additional services required to return to the preadmission environment? Yes * Can the patient safely return to the preadmission environment? Yes * Has this patient been hospitalized within the prior 30 days at any hospital? No Coverage Notice Reviewer: [id number] - Krista Panda Notice Issued Date-Time: 10/17/2019 14:50 Notice Type: IM Discharge Notice Notice Delivered To: Patient Relationship to Patient: Auditing Manager Name: Delivery Method: HAND - Hand Delivered Mayra Days: Prior Verbal Notification: Recipient Understood Notice: Yes Recipient Signature: Yes Med Rec Note Co-signed by Attending: Coverage Notice Comment: imm served and explained Last DP export: 10/17/19 2:46 p Patient Name: COLBY PARHAM Page 27146 at 1544 All edits/amendments must be made on the electronic document DICTATION DATE: 10/21/19 1158 ACCREDITED LEGAL SECRETARY: MICKY 10/21/19 1543 RPT#: [id number] DC DATE: STATUS: ADM IN [facility] [address] [place] [address] END OF REPORT
--- NOTE | 2019-10-21 17:23 | MORECARE ---
CASE MANAGEMENT DISCHARGE SUMMARY PATIENT: COLBY PARHAM UNIT: [id number] ADM DATE: 10/15/19 AGE: 74 : 43 SEX: M ROOM/BED: D.2210 AUTHOR: CORINEDOC PHYSICIAN: REFERRING PHYSICIAN: CR RUIZ MD DATE OF SERVICE: 10/21/19 Discharge Plan Patient Name: COLBY PARHAM Facility: [facility]:[place] : 1945 Planned Disposition: Home or Self Care Anticipated Discharge Date: Discharge Date: Expected LOS: Initial Reviewer: [email or web address] Initial Review Date: 10/15/2019 Generated: 10/21/19 6:23 pm Comments DCP- Discharge Planning Updated by [email or web address]: Aimee Stephany on 10/21/19 4:[address] Patient has now decided he does not want to go into Rehab. Refusal of service for Rehab and [facility] signed. Patient is in agreement with [facility]. MARISA signed for OP Therapy. Patient states he will go into the [facility] that is coordinated by [facility], through the [place] [facility]. Patient states that he has talked to Mikayla one week ago and she will make arrangements for him. Patient wants to go home tomorrow, states "I have things and appointments that I need to take care of". Patient states that he has all the equipment needed and that the VA MD is working on qualifying him for a scooter. Voices no other needs at this time. DCP- Discharge Planning Updated by [email or web address]: Aimee Hammond on 10/21/19 2:[address] Patient is in agreement with using his Medicare for Rehab. Notified admissions of same and request that signature for Declination VA be signed. Notified [facility] of same. Plan to go into rehab 10/21. MARISA has been signed by patient. DCP- Discharge Planning Updated by [email or web address]: Krista Panda on 10/17/19 2:[address] Called Romain at the [place] [facility] ([phone]) to ask about Assisted Living with the VA, she did not know who to direct me to, but she was getting information and will get back with me to help direct us where to go. CM to follow and assist as needed DCP- Discharge Planning Updated by [email or web address]: Krista Panda on 10/17/19 2:[address] Patient Name: COLBY PARHAM Admission Status: ER Accout number: [id number] Admission Date: 10-15-2019 : 1945 Admission Diagnosis:CEREBRAL INFARCTION, UNSPECIFIED Attending: CR RUIZ Current LOS: 2 Anticipated DC Date: Planned Disposition: Home or Self Care Primary Insurance: [facility] [employer] Discharge Planning Comments: CM met with patient to complete initial dc planning assessment. CM educated patient on the CM role and verbal consent given by patient to complete assessment. Patient lives at home with his sister. He said that he needs help with bathing. At discharge patient plans to return home and feels this is a safe discharge, but would like to get to an Assisted Living with the VA. CM discussed availability of home health, rehab services, and medical equipment. He said he has a rollator, walker, cane, glucometer that he uses at home. He is unsure of who will take him home, but he did say he has a daughter who lives local. He also mentioned he has a separate insurance that he could get 300.00 a day for extra help at home. (yaneth is his insurance sales assistant) IMM served and explained. Patient denied known discharge needs at this time. CM will continue to follow and will assist as needed with dc plans/needs. Handle Rounder Operator: Krista Panda DCPIA - Discharge Planning Initial Assessment Updated by [email or web address]: Krista Panda on 10/17/19 3:24 pm * Is the patient Alert and Oriented? Yes * How many steps to enter\\exit or inside your home? RAMP * PCP [facility]AB[facility] ([place] * [place]acy [place] * Preadmission Environment Home with Family * ADLs Partial Dependent * Partial ADLs (Assistance needed) Bathing * Equipment Glucometer Rolling Walker Walker Wheelchair * List name and contact numbers for known caregivers / representatives who currently or will assist patient after discharge: KASSANDRA SILVA [phone] * Verbal permission to speak to the caregivers and representatives has been obtained from the patient. N/A * Community resources currently utilized None * Additional services required to return to the preadmission environment? Yes * Can the patient safely return to the preadmission environment? Yes * Has this patient been hospitalized within the prior 30 days at any hospital? No Coverage Notice Reviewer: [id number] - Krista Panda Notice Issued Date-Time: 10/17/2019 14:50 Notice Type: IM Discharge Notice Notice Delivered To: Patient Relationship to Patient: Transit Manager Name: Delivery Method: HAND - Hand Delivered Mayra Days: Prior Verbal Notification: Recipient Understood Notice: Yes Recipient Signature: Yes Med Rec Note Co-signed by Attending: Coverage Notice Comment: imm served and explained Last DP export: 10/21/19 2:44 p Patient Name: COLBY PARHAM Page 98482 at 1723 All edits/amendments must be made on the electronic document DICTATION DATE: 10/21/191722 BOBBIN LOOSE END FINDER: MICKY 10/21/191722 RPT#: [id number] DC DATE: STATUS: ADM IN [facility] [address] [place] [address] END OF REPORT
--- NOTE | 2019-10-21 21:57 | NUR ---
OT NOTE: PT COMPLETED SUPINE TO SIT WITH SBA. PT COMPLETED SIT TO STAND WITH MIN A. PT COMPLETED ADL MOB WITH MIN A. PT COMPLETED UE AROM AXS WITH FUNCTIONAL WALKER MANAGEMENT. [phone] JESUS CUMMINGS COTA
[2019-10-22 00:09] VITALS: BP 143/56
[2019-10-22 05:26] VITALS: BP 109/48
[2019-10-22 06:14] LABS: BASOPHILS 0.2 % (0-2); EOSINOPHILS 3.4 % (0-7); HEMATOCRIT 36.5 % (42.0-54.0); HEMOGLOBIN 11.7 g/dL (13.5-17.5); LYMPHOCYTES 33.7 % (15-50); MCH 27.1 pg (26.0-34.0); MCHC 32.1 g/dL (31.0-37.0); MCV 84.5 fL (80.0-100.0); MEAN PLATELET VOLUME 10.6 fL (7.4-10.4); MONOCYTES 10.2 % (2-11); NEUTROPHILS 52.5 % (40-80); PLATELET COUNT 220 10x3/uL (130-400); RBC 4.32 10x6/uL (4.20-6.10); RDW 13.2 % (11.5-14.5); WBC 6.4 10x3/uL (4.8-10.8)
[2019-10-22 06:32] LABS: ANION GAP 9.8 mmol/L (8-16); CALCIUM 8.8 mg/dL (8.5-10.1); CARBON DIOXIDE 31.8 mmol/L (21.0-32.0); MAGNESIUM - SERUM 1.9 mg/dL (1.8-2.4); PHOSPHOROUS 4.1 mg/dL (2.5-4.9); POTASSIUM - SERUM 3.6 mmol/L (3.5-5.1)
--- NOTE | 2019-10-22 07:29 | NUR ---
ALERT AND ORIENTED. LUNGS CLEAR BILATERALLY. HEART SOUNDS S1 AND S2 HEARD IN ALL [place]. BOWEL SOUNDS ACTIVE X 4. NO IV. BED ALARM WAIVER ON CHART. BED LOW. CALL IYER AND PERSONAL ITEMS IN REACH. WILL CONTINUE TO MONITOR.
[2019-10-22 09:30] VITALS: BP 132/64
[2019-10-22] MEDS ORDERED: PLAVIX75 MG PO (11:57)
[2019-10-22] MEDS ORDERED: LIPITOR20 MG PO (11:57)
[2019-10-22 12:20] VITALS: BP 116/51
[2019-10-22 13:24] VITALS: BP 116/51
--- NOTE | 2019-10-22 14:07 | NUR ---
DISCHARGE EDUCATION PROVIDED BOTH WRITTEN AND VERBAL. VERBALIZED UNDERSTANDING. DENIES FURTHER QUESTIONS. PAPERWORK SIGNED IN ROOM WITH PATIENT BY TWO NURSES D/T PATIENT BLIND. TELEMETRY REMOVED AND RETURNED TO MAY AT MONITORS. NO IV TO REMOVE. PATIENT WAITING RIDE.
--- NOTE | 2019-10-22 14:31 | MORECARE ---
CASE MANAGEMENT DISCHARGE SUMMARY PATIENT: RENE PARHAM UNIT: [id number] ADM DATE: 10/15/19 AGE: 74 : 43 SEX: M ROOM/BED: D.2210 AUTHOR: CORINE,DOC PHYSICIAN: REFERRING PHYSICIAN: CR RUIZ MD DATE OF SERVICE: 10/22/19 Discharge Plan Patient Name: RENE PARHAM Facility: [facility]:[place] : 1945 Planned Disposition: Home Health Service Anticipated Discharge Date: 10/22/19 Discharge Date: Expected LOS: 7 Initial Reviewer: [email or web address] Initial Review Date: 10/15/2019 Generated: 10/22/19 3:30 pm Comments DCP- Discharge Planning Updated by [email or web address]: Aimee Hammond on 10/21/19 4:[address] Patient has now decided he does not want to go into Rehab. Refusal of service for Rehab and HHS signed. Patient is in agreement with [facility] OP [facility]. MARISA signed for OP Therapy. Patient states he will go into the Blind Rehab that is coordinated by Mikayla, through the [place] system. Patient states that he has talked to Mikayla one week ago and she will make arrangements for him. Patient wants to go home tomorrow, states "I have things and appointments that I need to take care of". Patient states that he has all the equipment needed and that the VA MD is working on qualifying him for a scooter. Voices no other needs at this time. DCP- Discharge Planning Updated by [email or web address]: Aimee Hammond on 10/21/19 2:[address] Patient is in agreement with using his Medicare for Rehab. Notified admissions of same and request that signature for Declination [place] be signed. Notified [facility] of same. Plan to go into rehab 10/21. MARISA has been signed by patient. DCP- Discharge Planning Updated by [email or web address]: Krista Panda on 10/17/19 2:[address] Called Romain at the [place] with [facility] ([phone]) to ask about Assisted Living with the [facility], she did not know who to direct me to, but she was getting information and will get back with me to help direct us where to go. CM to follow and assist as needed DCP- Discharge Planning Updated by [id number]: Krista Panda on 10/17/19 2:[address] Patient Name: RENE PARHAM Admission Status: ER Accout number: [id number] Admission Date: 10-15-2019 : 1945 Admission Diagnosis:CEREBRAL INFARCTION, UNSPECIFIED Attending: CR RUIZ Current LOS: 2 Anticipated DC Date: Planned Disposition: Home or Self Care Primary Insurance: [facility] Discharge Planning Comments: CM met with patient to complete initial dc planning assessment. CM educated patient on the CM role and verbal consent given by patient to complete assessment. Patient lives at home with his sister. He said that he needs help with bathing. At discharge patient plans to return home and feels this is a safe discharge, but would like to get to an Assisted Living with the VA. CM discussed availability of home health, rehab services, and medical equipment. He said he has a rollator, walker, cane, glucometer that he uses at home. He is unsure of who will take him home, but he did say he has a daughter who lives local. He also mentioned he has a separate insurance that he could get 300.00 a day for extra help at home. (yaneth is his insurance application investigator) IMM served and explained. Patient denied known discharge needs at this time. CM will continue to follow and will assist as needed with dc plans/needs. Press Catcher: Krista Panda DCPIA - Discharge Planning Initial Assessment Updated by [email or web address]: Krista Panda on 10/17/19 3:24 pm * Is the patient Alert and Oriented? Yes * How many steps to enter\\exit or inside your home? RAMP * PCP MARIA [facility]ABEL ([place] * Pharmacy [place] * Preadmission Environment Home with Family * ADLs Partial Dependent * Partial ADLs (Assistance needed) Bathing * Equipment Glucometer Rolling Walker Walker Wheelchair * List name and contact numbers for known caregivers / representatives who currently or will assist patient after discharge: KASSANDRA SILVA [phone] * Verbal permission to speak to the caregivers and representatives has been obtained from the patient. N/A * Community resources currently utilized None * Additional services required to return to the preadmission environment? Yes * Can the patient safely return to the preadmission environment? Yes * Has this patient been hospitalized within the prior 30 days at any hospital? No External Providers External Provider: [facility] Next Contact Date: Service Request Date: Service Type: Resolution: Reviewer: Comments: Coverage Notice Reviewer: [id number] Devora Panda Notice Issued Date-Time: 10/17/2019 14:50 Notice Type: IM Discharge Notice Notice Delivered To: Patient Relationship to Patient: Timber Framer Helper Name: Delivery Method: HAND - Hand Delivered Mayra Days: Prior Verbal Notification: Recipient Understood Notice: Yes Recipient Signature: Yes Med Rec Note Co-signed by Attending: Coverage Notice Comment: imm served and explained Reviewer: [id number] Devora Hammond Notice Issued Date-Time: 10/21/2019 17:22 Notice Type: Patient Choice Letter Notice Delivered To: Patient Relationship to Patient: Self Timber Framer Helper Name: Rene Parham Delivery Method: HAND - Hand Delivered Mayra Days: Prior Verbal Notification: Recipient Understood Notice: Yes Recipient Signature: Yes Med Rec Note Co-signed by Attending: Coverage Notice Comment: Decline services for In-patient Rehab and HHS. Reviewer: [email or web address] Devora Hammond Notice Issued Date-Time: 10/21/2019 17:22 Notice Type: Patient Choice Letter Notice Delivered To: Patient Relationship to Patient: Self Timber Framer Helper Name: Rene Parham Delivery Method: HAND - Hand Delivered Mayra Days: Prior Verbal Notification: Recipient Understood Notice: Yes Recipient Signature: Yes Med Rec Note Co-signed by Attending: Coverage Notice Comment: Patient choice for OP Therapy @[facility] Last DP export: 10/21/19 4:23 p Patient Name: RENE PARHAM Page [id number] at 1431 All edits/amendments must be made on the electronic document DICTATION DATE: 10/22/19 1430 CONDUCTOR PULLMAN: MICKY 10/22/19 1430 RPT#: [id number] DC DATE: STATUS: ADM IN [facility] [address] [place] [address] END OF REPORT
--- NOTE | 2019-10-22 14:43 | NUR ---
PATIENT DC HOME WITH ALL BELONGINGS.
--- NOTE | 2019-10-22 17:33 | MORECARE ---
CASE MANAGEMENT DISCHARGE SUMMARY PATIENT: COLBY PARHAM UNIT: [id number] ADM DATE: 10/15/19 AGE: 74 : 43 SEX: M ROOM/BED: D.2210 AUTHOR: CORINE,DOC PHYSICIAN: REFERRING PHYSICIAN: CR RUIZ MD DATE OF SERVICE: 10/22/19 Discharge Plan Patient Name: COLBY PARHAM [facility] [facility] 1945 Planned Disposition: Home Health Service Anticipated Discharge Date: 10/22/19 Discharge Date: 10/22/2019 Expected LOS: 7 Initial Reviewer: [id number] Initial Review Date: 10/15/2019 Generated: 10/22/19 6:32 pm DCP- Discharge Planning Updated by [id number]: Aimee Hammond on 10/21/19 4:[address] Patient has now decided he does not want to go into Rehab. Refusal of service for Rehab and HHS signed. Patient is in agreement with [facility] OP Therapy. MARISA signed for OP Therapy. Patient states he will go into the Blind Rehab that is coordinated by Mikayla, through the [place] system. Patient states that he has talked to Mikayla one week ago and she will make arrangements for him. Patient wants to go home tomorrow, states "I have things and appointments that I need to take care of". Patient states that he has all the equipment needed and that the VA MD is working on qualifying him for a scooter. Voices no other needs at this time. DCP- Discharge Planning Updated by [id number]: Aimee Hammond on 10/21/19 2:[address] Patient is in agreement with using his Medicare for Rehab. Notified admissions of same and request that signature for Declination [facility] be signed. Notified [facility] of same. Plan to go into rehab 10/21. MARISA has been signed by patient. DCP- Discharge Planning Updated by [email or web address]: Krista Panda on 10/17/19 2:[address] Called Romain at the [place] with [facility] ([phone]) to ask about Assisted Living with the VA, she did not know who to direct me to, but she was getting information and will get back with me to help direct us where to go. CM to follow and assist as needed DCP- Discharge Planning Updated by [id number]: Krista Panda on 10/17/19 2:[address] Patient Name: COLBY PARHAM Admission Status: ER Accout number: [id number] Admission Date: 10-15-2019 : 1945 Admission Diagnosis:CEREBRAL INFARCTION, UNSPECIFIED Attending: CR RUIZ Current LOS: 2 Anticipated DC Date: Planned Disposition: Home or Self Care Primary Insurance: [facility] [employer] Discharge Planning Comments: CM met with patient to complete initial dc planning assessment. CM educated patient on the CM role and verbal consent given by patient to complete assessment. Patient lives at home with his sister. He said that he needs help with bathing. At discharge patient plans to return home and feels this is a safe discharge, but would like to get to an Assisted Living with the VA. CM discussed availability of home health, rehab services, and medical equipment. He said he has a rollator, walker, cane, glucometer that he uses at home. He is unsure of who will take him home, but he did say he has a daughter who lives local. He also mentioned he has a separate insurance that he could get 300.00 a day for extra help at home. (yaneth is his insurance billing specialist) IMM served and explained. Patient denied known discharge needs at this time. CM will continue to follow and will assist as needed with dc plans/needs. Gore Maker: Krista Panda DCPIA - Discharge Planning Initial Assessment Updated by [email or web address]: Krista Panda on 10/17/19 3:24 pm * Is the patient Alert and Oriented? Yes * How many steps to enter\\exit or inside your home? RAMP * PCP [facility]ABEL ([place] * Pharmacy [place] * Preadmission Environment Home with Family * ADLs Partial Dependent * Partial ADLs (Assistance needed) Bathing * Equipment Glucometer Rolling Walker Walker Wheelchair * List name and contact numbers for known caregivers / representatives who currently or will assist patient after discharge: KASSANDRA RICARDO [phone] * Verbal permission to speak to the caregivers and representatives has been obtained from the patient. N/A * Community resources currently utilized None * Additional services required to return to the preadmission environment? Yes * Can the patient safely return to the preadmission environment? Yes * Has this patient been hospitalized within the prior 30 days at any hospital? No Coverage Notice Reviewer: [id number] Devora Panda Notice Issued Date-Time: 10/17/2019 14:50 Notice Type: IM Discharge Notice Notice Delivered To: Patient Relationship to Patient: Accounting Professor Name: Delivery Method: HAND - Hand Delivered Mayra Days: Prior Verbal Notification: Recipient Understood Notice: Yes Recipient Signature: Yes Med Rec Note Co-signed by Attending: Coverage Notice Comment: imm served and explained Reviewer: [email or web address] Hammond Notice Issued Date-Time: 10/21/2019 17:22 Notice Type: Patient Choice Letter Notice Delivered To: Patient Relationship to Patient: Self Accounting Professor Name: Colby Parham Delivery Method: HAND - Hand Delivered Mayra Days: Prior Verbal Notification: Recipient Understood Notice: Yes Recipient Signature: Yes Med Rec Note Co-signed by Attending: Coverage Notice Comment: Decline services for In-patient Rehab and HHS. Reviewer: [email or web address] Hammond Notice Issued Date-Time: 10/21/2019 17:22 Notice Type: Patient Choice Letter Notice Delivered To: Patient Relationship to Patient: Self Accounting Professor Name: Colby Parham Delivery Method: HAND - Hand Delivered Mayra Days: Prior Verbal Notification: Recipient Understood Notice: Yes Recipient Signature: Yes Med Rec Note Co-signed by Attending: Coverage Notice Comment: Patient choice for OP Therapy @[facility] Reviewer: [id number] Hammond Notice Issued Date-Time: 10/22/2019 14:42 Notice Type: Patient Choice Letter Notice Delivered To: Patient Relationship to Patient: Self Accounting Professor Name: Colby Parham Delivery Method: HAND - Hand Delivered Mayra Days: Prior Verbal Notification: Recipient Understood Notice: Yes Recipient Signature: Yes Med Rec Note Co-signed by Attending: Coverage Notice Comment: Patient choice for HHS with [facility]. Last DP export: 10/22/19 1:31 p Patient Name: COLBY PARHAM Page [id number] at 1733 All edits/amendments must be made on the electronic document DICTATION DATE: 10/22/191731 MARKET SUPERINTENDENT: MICKY 10/22/191731 RPT#: [id number] DC DATE:10/22/19 STATUS: DIS IN [place] [address] [place] [address] END OF REPORT
--- NOTE | 2019-10-22 17:41 | MORECARE ---
CASE MANAGEMENT DISCHARGE SUMMARY PATIENT: COLBY PARHAM UNIT: [id number] ADM DATE: 10/15/19 AGE: 74 : 43 SEX: M ROOM/BED: D.2210 AUTHOR: CORINEDOC PHYSICIAN: REFERRING PHYSICIAN: CR RUIZ MD DATE OF SERVICE: 10/22/19 Discharge Plan Patient Name: COLBY PARHAM Facility: [facility]:[place] : 1945 Planned Disposition: Home Health Service Anticipated Discharge Date: 10/22/19 Discharge Date: 10/22/2019 Expected LOS: 7 Initial Reviewer: [id number] Initial Review Date: 10/15/2019 Generated: 10/22/19 6:40 pm DCP- Discharge Planning Updated by [email or web address]: Aimee Hammond on 10/22/19 4:[address] Patient has decided that he would rather have HHS. He signed a Patient choice for any HHS. CM contacted Alex Moore, with [facility], patient's [facility] was run and he is out of network with [facility] as of November 04. Patient has changed his insurance to [facility] effective November 05, 2019. CM will contact the VA MD at the local [facility] office 10/22 to request a VA MD order patient's HHS. Notified David Bran APRN of same and he is in agreement since the patient uses the VA as his PCP. DCP- Discharge Planning Updated by [email or web address]: Aimee Hammond on 10/21/19 4:[address] Patient has now decided he does not want to go into Rehab. Refusal of service for Rehab and HHS signed. Patient is in agreement with [facility] OP Therapy. MARISA signed for OP Therapy. Patient states he will go into the Blind Rehab that is coordinated by Mikayla, through [facility]. Patient states that he has talked to Mikayla one week ago and she will make arrangements for him. Patient wants to go home tomorrow, states "I have things and appointments that I need to take care of". Patient states that he has all the equipment needed and that the VA MD is working on qualifying him for a scooter. Voices no other needs at this time. DCP- Discharge Planning Updated by [email or web address]: Aimee Hammond on 10/21/19 2:[address] Patient is in agreement with using his Medicare for Rehab. Notified admissions of same and request that signature for Declination [facility] be signed. Notified [facility] of same. Plan to go into rehab 10/21. MARISA has been signed by patient. DCP- Discharge Planning Updated by [id number]: Krista Panda on 10/17/19 2:[address] Called Romain at the [place] with [facility] ([phone]) to ask about Assisted Living with the VA, she did not know who to direct me to, but she was getting information and will get back with me to help direct us where to go. CM to follow and assist as needed DCP- Discharge Planning Updated by [id number]: Krista Panda on 10/17/19 2:[address] Patient Name: COLBY PARHAM Admission Status: ER Accout number: [id number] Admission Date: 10-15-2019 : 1945 Admission Diagnosis:CEREBRAL INFARCTION, UNSPECIFIED Attending: CR RUIZ Current LOS: 2 Anticipated DC Date: Planned Disposition: Home or Self Care Primary Insurance: [employer] Discharge Planning Comments: CM met with patient to complete initial dc planning assessment. CM educated patient on the CM role and verbal consent given by patient to complete assessment. Patient lives at home with his sister. He said that he needs help with bathing. At discharge patient plans to return home and feels this is a safe discharge, but would like to get to an Assisted Living with the VA. CM discussed availability of home health, rehab services, and medical equipment. He said he has a rollator, walker, cane, glucometer that he uses at home. He is unsure of who will take him home, but he did say he has a daughter who lives local. He also mentioned he has a separate insurance that he could get 300.00 a day for extra help at home. (yaneth is his insurance assistant) IMM served and explained. Patient denied known discharge needs at this time. CM will continue to follow and will assist as needed with dc plans/needs. Bullet Assembly Press Setter Operator: Krista Panda DCPIA - Discharge Planning Initial Assessment Updated by [email or web address]: Krista Panda on 10/17/19 3:24 pm * Is the patient Alert and Oriented? Yes * How many steps to enter\\exit or inside your home? RAMP * PCP [facility] ([place] * Pharmacy [place] * Preadmission Environment Home with Family * ADLs Partial Dependent * Partial ADLs (Assistance needed) Bathing * Equipment Glucometer Rolling Walker Walker Wheelchair * List name and contact numbers for known caregivers / representatives who currently or will assist patient after discharge: KASSANDRA SILVA [phone] * Verbal permission to speak to the caregivers and representatives has been obtained from the patient. N/A * Community resources currently utilized None * Additional services required to return to the preadmission environment? Yes * Can the patient safely return to the preadmission environment? Yes * Has this patient been hospitalized within the prior 30 days at any hospital? No Coverage Notice Reviewer: [id number] Devora Panda Notice Issued Date-Time: 10/17/2019 14:50 Notice Type: IM Discharge Notice Notice Delivered To: Patient Relationship to Patient: Seismology Teacher Name: Delivery Method: HAND - Hand Delivered Mayra Days: Prior Verbal Notification: Recipient Understood Notice: Yes Recipient Signature: Yes Med Rec Note Co-signed by Attending: Coverage Notice Comment: imm served and explained Reviewer: [email or web address] Devora Hammond Notice Issued Date-Time: 10/22/2019 14:42 Notice Type: Patient Choice Letter Notice Delivered To: Patient Relationship to Patient: Self Seismology Teacher Name: Colby Parham Delivery Method: HAND - Hand Delivered Mayra Days: Prior Verbal Notification: Recipient Understood Notice: Yes Recipient Signature: Yes Med Rec Note Co-signed by Attending: Coverage Notice Comment: Patient choice for [facility] with [facility] Reviewer: [email or web address] Devora Hammond Notice Issued Date-Time: 10/21/2019 17:22 Notice Type: Patient Choice Letter Notice Delivered To: Patient Relationship to Patient: Self Seismology Teacher Name: Colby Parham Delivery Method: HAND - Hand Delivered Mayra Days: Prior Verbal Notification: Recipient Understood Notice: Yes Recipient Signature: Yes Med Rec Note Co-signed by Attending: Coverage Notice Comment: Patient choice for OP Therapy @[facility] Reviewer: [id number] Devora Hammond Notice Issued Date-Time: 10/21/2019 17:22 Notice Type: Patient Choice Letter Notice Delivered To: Patient Relationship to Patient: Self Seismology Teacher Name: Colby Parham Delivery Method: HAND - Hand Delivered Mayra Days: Prior Verbal Notification: Recipient Understood Notice: Yes Recipient Signature: Yes Med Rec Note Co-signed by Attending: Coverage Notice Comment: Decline services for In-patient Rehab and HHS. Last DP export: 10/22/19 4:33 p Patient Name: COLBY PARHAM Page [phone] at 1741 All edits/amendments must be made on the electronic document DICTATION DATE: 10/22/191739 CULINARY INTERN: MICKY 10/22/191739 RPT#: [id number] DC DATE:10/22/19 STATUS: DIS IN [facility] [address] [place] [address] END OF REPORT
[2019-10-22 19:08] LABS: OVA + PARASITE EXAM Final report (())
== END 2019-10-22 14:44 | disposition home health service (06) | DRG 65 ==
LOC: D.ER 08:29 → D.MS 11:10 → D.SDCHOLD 10-17 16:08 → D.MS 10-17 16:11
PROVIDERS: Family Medicine; ADMIT Emergency Medicine; ATTEND Emergency Medicine
DX: I63.9 Cerebral infarction, unspecified (principal); N17.9 Acute kidney failure, unspecified; I13.0 Hypertensive heart and chronic kidney disease with heart failure and stage 1 through stage 4 chronic kidney disease, or unspecified chronic kidney disease; I50.20 Unspecified systolic (congestive) heart failure; N18.9 Chronic kidney disease, unspecified; I25.10 Atherosclerotic heart disease of native coronary artery without angina pectoris; E03.9 Hypothyroidism, unspecified; D63.1 Anemia in chronic kidney disease; R40.2243 Coma scale, best verbal response, confused conversation, at hospital admission; R40.2363 Coma scale, best motor response, obeys commands, at hospital admission; R40.2143 Coma scale, eyes open, spontaneous, at hospital admission; E11.22 Type 2 diabetes mellitus with diabetic chronic kidney disease; E11.42 Type 2 diabetes mellitus with diabetic polyneuropathy; Z86.73 Personal history of transient ischemic attack (TIA), and cerebral infarction without residual deficits